=== PATIENT | female | born 1935 | race Caucasian/White ===

== ENCOUNTER → 2018-05-08 08:57 | Outpatient (CLI) | payer OTHER, SELFPAY ==
[2018-05-08 10:41] LABS: BUN Creatinine Ratio 22.7 (6-22); Blood Urea Nitrogen 25 mg/dL (7-17); Calcium 10.3 mg/dL (8.4-10.2); Carbon Dioxide 30 mmol/L (22-32); Chloride 99 mmol/L (98-107); Estimated Glomerular Filt Rate 47.6 mL/min (>60); Glucose 175 mg/dL (80-110); HEMOLYSIS < 15 (0-50); Potassium 4.4 mmol/L (3.4-5.1); Sodium 138 mmol/L (137-145)
== END ==
PROVIDERS: PCP Family Medicine; Visit Provider Internal Medicine Cardiovascular Disease
DX: I48.0 Paroxysmal atrial fibrillation (principal)
CPT/HCPCS: 36415; 80048

== ENCOUNTER 2018-05-28 11:38 | Emergency (ER) | payer OTHER, SELFPAY ==
[2018-05-28 11:43] VITALS: BP 163/77; PULSE 74; RESP 14; TEMP 36.4; O2SAT 96
--- NOTE | 2018-05-28 12:52 | ED.EXTPRO ---
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 She admits that she was on her feet a lot longer than usual doing cleaning. She states that the veins feel warm, her leg feels more tender. She denies any feeling of systemic illness, fever, chills, sweats. She denies any chest pain, dyspnea, abdominal pain or other new complaints on systems review. She is on warfarin for AFib and it has been about a month since she had her INR checked. She does also take supplements including potassium and magnesium. Related Data Home Medications Medication Instructions Recorded Confirmed chlorthalidone 25 mg tablet 12.5 mg PO DAILY tab 05/18/18 05/18/18 Previous Rx's Medication Instructions Recorded potassium chloride [Klor-Con M10] 10 meq PO QAM #100 tab 01/25/17 fluticasone 0.05 mg INH SEE INSTRUCTIONS #1 spr 01/27/17 atorvastatin [Lipitor] 10 mg PO HS #90 tab 12/30/17 diltiazem HCl 120 mg PO QDAY #90 cap 12/30/17 epinephrine [EpiPen 2-Ruel] 0.3 mg IM SEE INSTRUCTIONS PRN #1 01/11/18 kit metformin [Glucophage] 1,000 mg PO BIDCC #100 tab 01/25/18 magnesium oxide 400 mg PO BID #100 tab 02/03/18 losartan 50 mg tablet 50 mg PO BID #180 tab 03/01/18 pantoprazole 20 mg tablet,delayed 20 mg PO EVERY OTHER DAY #100 tab 03/24/18 release warfarin 5 mg tablet 5 mg PO QDAY #180 tab 05/04/18 metoprolol succinate ER 25 mg 50 mg PO BID #180 tab 05/17/18 tablet,extended release 24 hr diabetic supplies, miscellan. #100 strip 05/18/18 Allergies Allergy/AdvReac Type Severity Reaction Status Date / Time crab [CRAB] Allergy Unknown VISION Verified 05/28/18 11:46 CHANGES hornet venom [HORNET VENOM] Allergy Unknown Verified 05/28/18 11:46 YELLOW JACKET BEE Allergy Unknown Uncoded 05/18/18 13:38 Review of Systems <Kylie Griffith PA-C - Last Filed: 05/28/18 21:19> Review of Systems All systems reviewed & are unremarkable except as noted in HPI and below Exam <Kylie Griffith PA-C - Last Filed: 05/28/18 21:19> Narrative Exam Narrative: GENERAL APPEARANCE: Patient sitting comfortably, in no distress. NECK/THYROID: Neck supple, no JVD. LUNGS: Clear to auscultation bilaterally. HEART: Rate and rhythm irregular without murmur ABDOMEN: Soft, NT, ND, + BS x 4 quadrants NEUROLOGIC: Alert and oriented, normal speech, gait and coordination. EXTREMITIES: No cyanosis, trace edema on the right, none on the left. There are large, ropy, tender varicosities on the right medial calf and thigh as well as multiple smaller varicosities, none on the left. PT and DP pulses 2+ bilaterally. Moderate tenderness over the right medial calf and thigh Initial Vital Signs Initial Vital Signs: Vital Signs Temperature 97.6 F 05/28/18 11:43 Pulse Rate 74 05/28/18 11:43 Respiratory Rate 14 05/28/18 11:43 Blood Pressure 163/77 H 05/28/18 11:43 Pulse Oximetry 96 05/28/18 11:43 <Triston Gordon MD - Last Filed: 05/29/18 08:55> Initial Vital Signs Initial Vital Signs: Vital Signs Temperature 97.6 F 05/28/18 11:43 Pulse Rate 74 05/28/18 11:43 Respiratory Rate 14 05/28/18 11:43 Blood Pressure 163/77 H 05/28/18 11:43 Pulse Oximetry 96 05/28/18 11:43 Course <SINDY Womack Last Filed: 05/28/18 21:19> Orders Ordered: ED Orders 05/28/18 13:06 US periph venous low extrem rt Stat 05/28/18 13:15 Basic Metabolic Panel Stat Magnesium Stat Prothrombin Time INR Stat Vital Signs - 8 hr 05/28/18 14:42 Pulse Rate 77 Respiratory Rate 16 Blood Pressure 160/78 H Pulse Oximetry 99 <Triston Gordon MD - Last Filed: 05/29/18 08:55> Orders Ordered: ED Orders 05/28/18 13:06 US periph venous low extrem rt Stat 05/28/18 13:15 Basic Metabolic Panel Stat Magnesium Stat Prothrombin Time INR Stat Vital Signs - 8 hr 05/28/18 14:42 Pulse Rate 77 Respiratory Rate 16 Blood Pressure 160/78 H Pulse Oximetry 99 MDM - Extremity (Nontraumatic) <Kylie Griffith PA-C - Last Filed: 05/28/18 21:19> Lab Data Attestation: I reviewed the patient's lab results. Result diagrams: 05/28/18 13:15 Lab Results 05/28/18 05/28/18 Range/Units 13:15 13:15 PT 31.8 H (10.1-12.7) SECONDS INR 2.9 H (0.9-1.3) Sodium 136 L (137-145) mmol/L Potassium 4.5 (3.4-5.1) mmol/L Chloride 96 L (98-107) mmol/L Carbon Dioxide 28 (22-32) mmol/L BUN 30 H (7-17) mg/dL Creatinine 1.30 H (0.52-1.04) mg/dL Estimated GFR 39.2 L (>60) mL/min BUN/Creatinine Ratio 23.1 H (6-22) Glucose 137 H (80-110) mg/dL Calcium 10.4 H (8.4-10.2) mg/dL Magnesium 1.6 (1.6-2.3) mg/dL Imaging Data Venous US: Radiologist's impression: [place] [address] Ultrasound Report Signed Patient: Janneth Renner MR#: [id number] : 1935 Acct:[id number] Age/Sex: 83 / F Date of Service: 05/28/18 Loc: ED Accession Number: [id number] Procedure: US periph venous low extrem rt Ordering Provider: Kylie Griffith P.A-C PROCEDURE: US PERIPH VENOUS LOW EXTREM RT INDICATIONS: increased pain, varicosities, r/o DVT TECHNIQUE: Real-time imaging, as well as color and pulse Doppler interrogation, were performed of the lower extremity deep veins from the inguinal ligament to the popliteal fossa. COMPARISON: None. FINDINGS: The deep veins are normally compressible, and free of intraluminal thrombus. Color and pulse Doppler demonstrate normal phasic intraluminal flow. There is normal augmentation response to distal compression maneuver. IMPRESSION: No DVT found. Dictated by: Sixto Monzon M.D. on 05/28/2018 at 14:05 Approved by: Sixto Monzon M.D. on 05/28/2018 at 14:06 <Triston Gordon MD - Last Filed: 05/29/18 08:55> Lab Data Lab Results 05/28/18 05/28/18 Range/Units 13:15 13:15 PT 31.8 H (10.1-12.7) SECONDS INR 2.9 H (0.9-1.3) Sodium 136 L (137-145) mmol/L Potassium 4.5 (3.4-5.1) mmol/L Chloride 96 L (98-107) mmol/L Carbon Dioxide 28 (22-32) mmol/L BUN 30 H (7-17) mg/dL Creatinine 1.30 H (0.52-1.04) mg/dL Estimated GFR 39.2 L (>60) mL/min BUN/Creatinine Ratio 23.1 H (6-22) Glucose 137 H (80-110) mg/dL Calcium 10.4 H (8.4-10.2) mg/dL Magnesium 1.6 (1.6-2.3) mg/dL Discharge Plan Departure Patient Disposition: Home, Self-Care Clinical Impression: Varicose veins of right lower extremity, Phlebitis of superficial vein of right lower extremity Discharge Date/Time: 05/28/18 14:43 Interventions: ED Discharge Assessment Last Done: 05/28/18 14:42 Instructions: DI for Varicose Veins Activity Restrictions/Additional Instructions: I think that your leg pain today is from inflammation in the veins due to being on your feet for longer hours yesterday. There is no acute abnormality on your blood tests and no deep blood clot on her ultrasound today. The large varicose veins on your inner leg may be a little inflamed but this should improve with rest, elevating your leg above your heart, and you can also apply heat to the sore veins to help with pain. Take Tylenol as needed. Return if you have any acutely worsening symptoms, otherwise follow up with your PCP to recheck your INR as they advise since you were tested here today. Prescriptions: No Action potassium chloride [Klor-Con M10] 10 MEQ tablet,ER particles/crystals 10 meq PO QAM Qty: 100 RF: 5 fluticasone 16 GM spray,suspension 0.05 mg INH SEE INSTRUCTIONS Qty: 1 RF: 11 diltiazem HCl 120 MG capsule,extended release 24hr 120 mg PO QDAY Qty: 90 RF: 5 atorvastatin [Lipitor] 10 MG tablet 10 mg PO HS Qty: 90 RF: 3 epinephrine [EpiPen 2-Ruel] 0.3 MG/0.3 ML auto-injector 0.3 mg IM SEE INSTRUCTIONS PRNQty: 1 RF: 5 metformin [Glucophage] 500 MG tablet 1,000 mg PO BIDCC Qty: 100 RF: 5 magnesium oxide 400 MG tablet 400 mg PO BID Qty: 100 RF: 3 pantoprazole 20 mg tablet,delayed release (DR/EC) 20 mg PO EVERY OTHER DAY Qty: 100 RF: 3 warfarin [Coumadin] 5 mg tablet 5 mg PO QDAY Qty: 180 RF: 3 metoprolol succinate [Toprol XL] 25 mg tablet extended release 24 hr 50 mg PO BID Qty: 180 RF: 1 diabetic supplies, miscellan. misc .ROUTE .MEDSUPPLY Qty: 100 RF: 12 losartan 50 mg tablet 50 mg PO BID Qty: 180 RF: 0 chlorthalidone 25 mg tablet 12.5 mg PO DAILY RF: 0 Referrals: Pepe Chan MD [Primary Care Provider] - <Triston Gordon MD - Last Filed: 05/29/18 08:55> Sign Out Provider Sign Out Attestation: The PA/ORNAMENTAL METAL ERECTOR functioned independently for the care of this pt, I was available, but not asked to participate in care. I am unable to determine appropriateness of management without personally examining the pt.
--- NOTE | 2018-05-28 13:06 | DI.US.S_ITS ---
PROCEDURE: US PERIPH VENOUS LOW EXTREM RT INDICATIONS: increased pain, varicosities, r/o DVT TECHNIQUE: Real-time imaging, as well as color and pulse Doppler interrogation, were performed of the lower extremity deep veins from the inguinal ligament to the popliteal fossa. COMPARISON: None. FINDINGS: The deep veins are normally compressible, and free of intraluminal thrombus. Color and pulse Doppler demonstrate normal phasic intraluminal flow. There is normal augmentation response to distal compression maneuver. IMPRESSION: No DVT found. Dictated by: Sixto Monzon M.D. on 05/28/2018 at 14:05 Approved by: Sixto Monzon M.D. on 05/28/2018 at 14:06
[2018-05-28 13:30] LABS: INR 2.9 (0.9-1.3); Prothrombin Time 31.8 SECONDS (10.1-12.7)
[2018-05-28 13:34] LABS: BUN Creatinine Ratio 23.1 (6-22); Blood Urea Nitrogen 30 mg/dL (7-17); Calcium 10.4 mg/dL (8.4-10.2); Carbon Dioxide 28 mmol/L (22-32); Chloride 96 mmol/L (98-107); Estimated Glomerular Filt Rate 39.2 mL/min (>60); Glucose 137 mg/dL (80-110); HEMOLYSIS < 15 (0-50); Magnesium 1.6 mg/dL (1.6-2.3); Potassium 4.5 mmol/L (3.4-5.1); Sodium 136 mmol/L (137-145)
[2018-05-28 14:42] VITALS: BP 160/78; PULSE 77; RESP 16; O2SAT 99
== END 2018-05-28 14:43 | disposition home or self-care (01) ==
PROVIDERS: Emergency Provider Internal Medicine; PCP Family Medicine
DX: I83.91 Asymptomatic varicose veins of right lower extremity (principal); I80.01 Phlebitis and thrombophlebitis of superficial vessels of right lower extremity
CPT/HCPCS: 36415; 80048; 83735; 85610; 93971; 99282; 99283

== ENCOUNTER → 2018-05-31 13:02 | Outpatient (CLI) | payer OTHER, SELFPAY ==
--- NOTE | 2018-05-31 13:06 | DI.MG.S_ITS ---
BILATERAL DIGITAL DIAGNOSTIC MAMMOGRAM 3D/2D: 05/31/2018 CLINICAL: Left breast skin changes. Comparison is made to exams dated: 05/19/2016 mammogram, 07/05/2014 mammogram, and 04/17/2013 mammogram - [facility]. There are scattered fibroglandular elements in both breasts. No significant masses, calcifications, or other findings are seen in either breast. IMPRESSION: INCOMPLETE: NEEDS ADDITIONAL IMAGING EVALUATION There is no mammographic abnormality seen in the left breast to correspond with the skin lesion, however, ultrasound is recommended. This exam was interpreted at Station ID: [id number]. NOTE: For mammograms, a report in lay terms will be sent to the patient. Approximately 15% of breast malignancies will not be visualized mammographically. In the management of a palpable breast mass, a negative mammogram must not discourage biopsy of a clinically suspicious lesion. Electronically Signed By: Ailin hooker/tessie:05/31/2018 16:38:24 letter sent: Additional Imaging Needed ACR BI-RADS Category 0: Incomplete [id number]
--- NOTE | 2018-05-31 13:06 | DI.US.S_ITS ---
ULTRASOUND OF LEFT BREAST: 05/31/2018 CLINICAL: Follow up from addtional views. Comparison is made to exams dated: 05/31/2018 mammogram - [facility], 05/19/2016 mammogram, and 07/05/2014 mammogram - [facility]. Ultrasound of the left breast was performed on the area of interest. Manjarrez scale images of the real-time examination were reviewed. IMPRESSION: NEGATIVE There is no sonographic evidence of malignancy. There is no mammographic or sonographic abnormality seen in the left breast to correspond with the skin lesion, however, clinical followup is recommended. A 1 year screening mammogram is recommended. This exam was interpreted at Station ID: [id number]. Electronically Signed By: Ailin hooker/tessie:05/31/2018 16:39:05 letter sent: Clinical Evaluation Ultrasound BI-RADS: 1 Negative
== END ==
PROVIDERS: PCP Family Medicine; Visit Provider Internal Medicine
DX: R92.8 Other abnormal and inconclusive findings on diagnostic imaging of breast (principal); R23.4 Changes in skin texture
CPT/HCPCS: 76642; 77066; G0279

== ENCOUNTER → 2018-06-20 09:12 | Outpatient (CLI) | payer OTHER, SELFPAY ==
[2018-06-20 11:15] LABS: Hemoglobin A1C% w Est Avg Glu 7.5 % (4.0-6.0)
[2018-06-20 11:42] LABS: BUN Creatinine Ratio 28.2 (6-22); Blood Urea Nitrogen 31 mg/dL (7-17); Calcium 10.2 mg/dL (8.4-10.2); Carbon Dioxide 29 mmol/L (22-32); Chloride 101 mmol/L (98-107); Estimated Glomerular Filt Rate 47.6 mL/min (>60); Glucose 159 mg/dL (80-110); HEMOLYSIS < 15 (0-50); Potassium 4.7 mmol/L (3.4-5.1); Sodium 142 mmol/L (137-145)
== END ==
PROVIDERS: PCP Family Medicine; Visit Provider Family Medicine
DX: E11.9 Type 2 diabetes mellitus without complications (principal)
CPT/HCPCS: 36415; 80048; 83036

== ENCOUNTER → 2018-08-07 07:59 | Outpatient (CLI) | payer OTHER, SELFPAY ==
--- NOTE | 2018-08-07 09:09 | PM.TREADMILL ---
Cardiac Stress Test Report Referral & Results Date Patient Seen: 08/07/18 Time Patient Seen: 09:09 Requesting provider: Aleshia Desai Indication: Paroxysmal atrial fibrillation Rest ECG: Frequent PACs and less frequent to perhaps rare PVCs otherwise unremarkable Procedure Note: After both written and verbal informed consent the patient had an IV started by the diagnostic imaging RN and then was hooked up to the treadmill monitoring system. The patient was placed on the treadmill at 1 mile an hour with no elevation and was then injected with the Stormy scan material. The Cardiolite was then immediately administered. The patient spent an additional 2-3 minutes on the treadmill before being returned to the [facility] in the supine position. The patient had a normal response to all infused materials. Impression: Perfusion imaging will be reported separately. Please note: Actual ECG tracings can be found in the PACS system.
--- NOTE | 2018-08-08 15:08 | DI.NM.S_ITS ---
DATE OF SERVICE: 08/07/2018 ORDERING PHYSICIAN: Aleshia Desai MD PROCEDURE PERFORMED: Pharmacologic stress and rest myocardial perfusion imaging with gating to assess ejection fraction and regional wall motion. INDICATIONS: The patient is an 83-year-old female with a history of paroxysmal atrial fibrillation. PHARMACOLOGIC STRESS: Per protocol, 0.4 mg of regadenoson was infused with a normal hemodynamic response. She had no chest discomfort. Her resting ECG shows sinus rhythm with frequent PACs, at times in a bigeminal pattern, but no ST segment abnormalities. With stress, there were no significant ST segment shifts. There were no other additional arrhythmias. Per protocol, 27.0 mCi of technetium-99 Myoview was injected and the patient was imaged 15 minutes later using a gated SPECT acquisition protocol. The patient returned the following day and was reinjected with an additional 25.1 mCi of technetium-99 Myoview and was imaged 30 minutes later, again using a gated SPECT acquisition protocol. FINDINGS: 1. Raw data: There was fairly good myocardial tracer uptake. The lung/heart ratio was normal at 0.31 and the TID ratio was normal at 0.82. 2. Quantitated gated SPECT: The post-stress ejection fraction is estimated at 69% without any focal wall motion abnormality. Resting ejection fraction is estimated at 66% with a resting end-diastolic volume of 116 mL. 3. Myocardial perfusion imaging: Post-stress supine images show a fairly normal myocardial perfusion pattern with a very slight defect at the base of the inferior wall in a pattern consistent with diaphragmatic attenuation, supported by its complete resolution on the prone images which reveal a completely normal perfusion pattern. The resting images show an identical perfusion pattern to that of the post-stress supine images. CONCLUSIONS: 1. Normal myocardial perfusion study. 2. Probable mild diaphragmatic attenuation artifact but no evidence for significant myocardial ischemia or previous myocardial infarction. 3. Normal left ventricular systolic function without any focal wall motion abnormality. 4. No angina or ECG evidence of ischemia with pharmacologic stress. She was in sinus rhythm with frequent PACs but no other arrhythmia. 5. Compared to the previous myocardial perfusion study of 02/14/2017, an identical perfusion pattern is seen. Her previous ejection fraction was 74%, and perfusion imaging appears identical. There has been no significant change. Janneth Renner - RS/fn/kv doc#: [id number]/job#: [id number] dd: 08/08/2018 12:41:00 dt: 08/08/2018 15:01:00 DICTATING MD/COPIES TO: Darryl Rendon MD ; Aleshia Desai MD COPIES MNE: ODROTHY BORDEN
== END ==
PROVIDERS: PCP Family Medicine; Visit Provider Internal Medicine Cardiovascular Disease
DX: I48.0 Paroxysmal atrial fibrillation (principal)
CPT/HCPCS: 78452; 93016; 93017; 93018; A9502; J2785

== ENCOUNTER → 2018-08-17 09:43 | Outpatient (CLI) | payer OTHER, SELFPAY ==
[2018-08-17 11:45] LABS: Hemoglobin A1C% w Est Avg Glu 7.5 % (4.0-6.0)
[2018-08-17 11:48] LABS: Blood Urea Nitrogen 24 mg/dL (7-17); Calcium 9.8 mg/dL (8.4-10.2); Carbon Dioxide 29 mmol/L (22-32); Chloride 101 mmol/L (98-107); Estimated Glomerular Filt Rate 53.1 mL/min (>60); Glucose 173 mg/dL (80-110); HEMOLYSIS < 15 (0-50); Potassium 4.3 mmol/L (3.4-5.1); Sodium 142 mmol/L (137-145)
== END ==
PROVIDERS: PCP Family Medicine; Visit Provider Family Medicine
DX: R07.9 Chest pain, unspecified (principal)
CPT/HCPCS: 36415; 80048; 83036

== ENCOUNTER → 2019-07-31 11:07 | Outpatient (CLI) | payer OTHER, SELFPAY ==
--- NOTE | 2019-07-31 11:09 | DI.RAD.S_ITS ---
PROCEDURE: XR CHEST 2V INDICATIONS: coughing, chest tightness TECHNIQUE: 2 views of the chest were acquired. COMPARISON: [facility], CHEST 1 VIEW, 01/23/2017, 4:47. [facility], CHEST 1 VIEW, 12/29/2017, 13:09. FINDINGS: Surgical changes and devices: None. Lungs and pleura: Pulmonary vascularity is increased. Small effusions are present bilaterally. No pneumothorax. Mediastinum: Mediastinal contours are normal. Heart size is moderately increased. Bones and chest wall: No suspicious bony abnormalities. Soft tissues appear unremarkable. IMPRESSION: Moderate cardiomegaly and increased pulmonary vascularity and small bilateral effusions compatible with congestive heart failure. Dictated by: Mitch Lynch M.D. on 07/31/2019 at 13:53 Approved by: Mitch Lynch M.D. on 07/31/2019 at 13:55
== END ==
PROVIDERS: PCP Family Medicine; Visit Provider Family Medicine
DX: R05 Cough (principal); R07.89 Other chest pain; I51.7 Cardiomegaly; J90 Pleural effusion, not elsewhere classified
CPT/HCPCS: 71046

== ENCOUNTER → 2019-08-15 13:26 | Outpatient (CLI) | payer OTHER, SELFPAY ==
[2019-08-15 14:43] LABS: BUN Creatinine Ratio 21.4 (6-22); Blood Urea Nitrogen 30 mg/dL (7-17); Calcium 8.9 mg/dL (8.4-10.2); Carbon Dioxide 27 mmol/L (22-32); Chloride 95 mmol/L (98-107); Estimated Glomerular Filt Rate 35.9 mL/min (>60); Glucose 194 mg/dL (80-110); HEMOLYSIS < 15 (0-50); Potassium 3.4 mmol/L (3.4-5.1); Sodium 136 mmol/L (137-145)
== END ==
PROVIDERS: Family Provider Family Medicine; PCP Family Medicine; Visit Provider Nurse Practitioner
DX: I51.7 Cardiomegaly (principal); J90 Pleural effusion, not elsewhere classified; R60.0 Localized edema; T50.1X5A Adverse effect of loop [high-ceiling] diuretics, initial encounter
CPT/HCPCS: 36415; 80048

== ENCOUNTER → 2019-08-22 16:04 | Outpatient (CLI) | payer OTHER, SELFPAY ==
[2019-08-22 18:44] LABS: Blood Urea Nitrogen 28 mg/dL (7-17); Calcium 9.1 mg/dL (8.4-10.2); Carbon Dioxide 29 mmol/L (22-32); Chloride 95 mmol/L (98-107); Estimated Glomerular Filt Rate 35.9 mL/min (>60); Glucose 191 mg/dL (80-110); HEMOLYSIS < 15 (0-50); Magnesium 1.4 mg/dL (1.6-2.3); Potassium 3.2 mmol/L (3.4-5.1); Sodium 136 mmol/L (137-145)
== END ==
PROVIDERS: Family Provider Family Medicine; PCP Family Medicine; Visit Provider Nurse Practitioner
DX: I48.91 Unspecified atrial fibrillation (principal); R60.0 Localized edema
CPT/HCPCS: 36415; 80048; 83735

== ENCOUNTER → 2019-08-31 10:47 | Outpatient (CLI) | payer OTHER, SELFPAY ==
[2019-08-31 11:33] LABS: BUN Creatinine Ratio 26.4 (6-22); Blood Urea Nitrogen 37 mg/dL (7-17); Calcium 10.2 mg/dL (8.4-10.2); Carbon Dioxide 23 mmol/L (22-32); Chloride 100 mmol/L (98-107); Estimated Glomerular Filt Rate 35.9 mL/min (>60); Glucose 199 mg/dL (80-110); HEMOLYSIS < 15 (0-50); Magnesium 1.8 mg/dL (1.6-2.3); Potassium 4.5 mmol/L (3.4-5.1); Sodium 137 mmol/L (137-145)
== END ==
PROVIDERS: PCP Family Medicine; Visit Provider Nurse Practitioner
DX: R00.0 Tachycardia, unspecified (principal); R07.9 Chest pain, unspecified; R79.0 Abnormal level of blood mineral
CPT/HCPCS: 36415; 80048; 83735

== ENCOUNTER 2019-09-22 02:42 | Inpatient (IN) | payer OTHER, SELFPAY ==
[2019-09-22] VITALS (15 sets, daily range): BP systolic 61–156; BP diastolic 32–113; PULSE 81–146; RESP 15–35; TEMP 35.5–36.8; O2SAT 75–98; BMI 28.1
--- NOTE | 2019-09-22 02:48 | DI.RAD.S_ITS ---
PROCEDURE: XR PELVIS 1-2V INDICATIONS: fall, trauma TECHNIQUE: 1 view(s) of the pelvis acquired. COMPARISON: [facility], CT, ABDOMEN/PELVIS WITH CONTRAST, 04/29/2014, 10:14. FINDINGS: Study is limited by grid lines. Bones: No fractures or dislocations. No suspicious bony lesions. There is moderate superior joint space narrowing seen of both hips, with associated remodeling changes with subchondral sclerosis and osteophyte formation. Age-appropriate lower lumbar spine degenerative changes are noted. Soft tissues: Visualized bowel gas pattern is normal. No suspicious soft tissue calcifications. IMPRESSION: No displaced fractures are detected. If there is point tenderness (or other clinical suspicion for a fracture not seen on these images) then a dedicated CT of the pelvis could be considered for further evaluation, as clinically appropriate. Degenerative changes are seen. Dictated by: Garland Neville M.D. on 09/22/2019 at 9:02 Approved by: Garland Neville M.D. on 09/22/2019 at 9:04
--- NOTE | 2019-09-22 02:48 | DI.CT.S_ITS ---
PROCEDURE: CT HEAD/BRAIN WO CON INDICATIONS: altered mental status, possible fall vs. stroke, found down TECHNIQUE: Noncontrast 4.5 mm thick angled axial sections acquired from the foramen magnum to the vertex, with coronal and sagittal reformats. For radiation dose reduction, the following was used: automated exposure control, adjustment of mA and/or kV according to patient size. COMPARISON: [facility], CT, SINUS SCREEN WO CONTRAST, 06/13/2017, 10:11. [facility], CR, XR CHEST 1V, 09/22/2019, 2:55. [facility], CR, XR PELVIS 1-2V, 09/22/2019, 2:55. [facility], CR, XR CHEST 1V, 09/22/2019, 9:57. FINDINGS: Image quality: Excellent. CSF spaces: Basal cisterns are patent. No extra-axial fluid collections. The ventricles are symmetric in size and shape. Brain: No intracranial bleeds or masses. There is cerebral volume loss for age, with resultant ventricular and sulcal prominence. There are periventricular and deep white matter chronic small vessel ischemic changes. There is intracranial internal carotid artery atherosclerosis. Skull and face: There is a mild left parietal scalp hematoma seen. No underlying calvarial fracture can be seen. Calvarium and visualized facial bones appear intact, without suspicious lesions. Sinuses: Maxillary sinus mucus retention cysts are seen. Moderate mucosal thickening seen within the ethmoid air cells and within the inferior left frontal sinus. No abnormal fluid is seen within the mastoid air cells. IMPRESSION: Mild left parietal scalp hematoma, without an associated calvarial fracture. No acute intracranial process is seen. No acute intracranial hemorrhage is seen. Note is made of age-appropriate brain parenchymal volume loss and chronic small vessel ischemic changes. Paranasal sinus disease noted. Note: No significant discrepancy from the preliminary report. Dictated by: Garland Neville M.D. on 09/22/2019 at 9:07 Approved by: Garland Neville M.D. on 09/22/2019 at 9:09
--- NOTE | 2019-09-22 02:48 | DI.RAD.S_ITS ---
PROCEDURE: XR CHEST 1V INDICATIONS: fall, trauma TECHNIQUE: One view of the chest was acquired. COMPARISON: [facility], CT, THORAX WITHOUT CONTRAST, 07/23/2016, 10:56. [facility], CT, PE STUDY (CTA CHEST), 08/03/2015, 15:38. [facility], CR, CHEST 1 VIEW, 12/29/2017, 13:09. [facility], CT, CT HEAD/BRAIN WO CON, 09/22/2019, 3:04. [facility], CR, XR PELVIS 1-2V, 09/22/2019, 2:55. [facility], CR, XR CHEST 2V, 07/31/2019, 12:13. FINDINGS: Surgical changes and devices: None. Lungs and pleura: On this supine examination, no large pneumothorax or large pleural effusions are seen. No focal areas of lung consolidation are seen. Interstitial prominence is seen. Mediastinum: The cardiac contours are moderately to prominently enlarged. The aorta demonstrates calcification and tortuosity. Bones and chest wall: No suspicious bony lesions. No displaced fractures are detected. Age-appropriate bony degenerative changes are seen. Overlying soft tissues appear unremarkable. IMPRESSION: No acute posttraumatic abnormality is seen. Cardiomegaly and interstitial prominence. Please correlate with patient presentation, physical examination findings, and laboratory values for congestive heart failure. Dictated by: Garland Neville M.D. on 09/22/2019 at 9:04 Approved by: Garland Neville M.D. on 09/22/2019 at 9:06
--- NOTE | 2019-09-22 02:54 | ED.WEAKNESS ---
HPI - Weakness General Chief complaint: Trauma Stated complaint: Ground level fall Time Seen by Provider: 09/22/19 02:42 Source: patient and EMS Mode of arrival: EMS Limitations: no limitations History of Present Illness HPI Narrative: 84-year-old female nonsmoker with medical history of hypertension and atrial fibrillation on Coumadin presents by EMS after police were called to do a welfare check as no one had heard from her for the past few days. Please prompt on the door and found her lying on the ground in her bathroom, apparently she had fallen, or passed out and pulled the shower curtain down. The patient is awake, alert and oriented x3 and denies any pain. She is unclear how long she has been on the ground and how she ended up there in the 1st place. She denies any head, neck or back pain. She denies any nausea or vomiting. She does state that she feels very weak, thirsty and short of breath. She denies any change in bowel habits nor urinary complaints such as dysuria, frequency or urgency. She denies any change in her medications or diet. MD Complaint: generalized weakness Onset (ago): unknown Duration: constant Location: generalized Severity: severe Relieving factors: none Exacerbating factors: none Associated symptoms: loss of appetite and shortness of breath Related Data Home Medications Medication Instructions Recorded Confirmed potassium chloride 10 mEq 20 meq PO QAM tab 08/22/19 09/22/19 tablet,extended release(part/cryst) chlorthalidone 12.5 mg PO DAILY 09/22/19 09/22/19 diltiazem HCl [Cartia XT] 120 mg PO DAILY 09/22/19 09/22/19 Previous Rx's Medication Instructions Recorded epinephrine [EpiPen 2-Ruel] 0.3 mg IM SEE INSTRUCTIONS PRN #1 01/11/18 kit diabetic supplies, miscellan. #100 strip 05/18/18 metformin 500 mg tablet 1,000 mg PO BIDCC #100 tab 12/04/18 atorvastatin [Lipitor] 10 mg PO HS #90 tab 12/25/18 losartan 50 mg tablet 50 mg PO BID #180 tab 12/25/18 diltiazem HCl 120 mg PO QDAY #90 cap 03/15/19 magnesium oxide 400 mg PO BID #100 tab 03/26/19 warfarin 5 mg tablet 5 mg PO QDAY #180 tab 04/13/19 amlodipine 2.5 mg tablet 2.5 mg PO DAILY #30 tab 06/04/19 pantoprazole 20 mg tablet,delayed 20 mg PO EVERY OTHER DAY #100 tab 06/12/19 release metoprolol succinate 25 mg 75 mg PO BID #90 tab 08/22/19 tablet,extended release 24 hr triamcinolone acetonide 0.05 % 1 applictn TOP TID PRN #430 gram 08/22/19 topical ointment Allergies Allergy/AdvReac Type Severity Reaction Status Date / Time crab [CRAB] Allergy Unknown VISION Verified 08/22/19 14:37 CHANGES hornet venom [HORNET VENOM] Allergy Unknown Verified 08/22/19 14:37 YELLOW JACKET BEE Allergy Unknown Uncoded 08/22/19 14:37 Review of Systems Review of Systems ROS Unobtainable: All systems reviewed & are unremarkable except as noted in HPI and below Constitutional Constitutional: Denies chills, Reports fatigue, Denies fever(s), Denies frequent falls, Denies lethargy and Reports weakness Eyes Eyes: Denies change in vision, Denies eye discharge, Denies irritation and Denies loss of vision ENT Ears, Nose, Mouth, and Throat: Denies change in voice, Denies dizziness, Denies neck pain, Denies sore throat and Denies throat swelling Comments: Dry mucous membranes Cardiovascular Cardiovascular: Reports rapid heart rate, Reports irregular heart rhythm, Reports lightheadedness, Reports palpitations, Reports dyspnea, Denies dyspnea on exertion and Denies orthopnea Respiratory Respiratory: Denies cough, Reports dyspnea, Denies dyspnea on exertion and Denies wheezing Gastrointestinal Gastrointestinal: Denies abdominal pain, Denies change in bowel habits, Denies diarrhea, Denies nausea and Denies vomiting Genitourinary Genitourinary: Denies hematuria, Denies flank pain, Denies urinary incontinence and Denies urinary urgency Musculoskeletal Musculoskeletal: Denies back pain, Reports muscle weakness, Denies neck pain, Denies numbness and Denies tingling Integumentary/Breasts Skin/Breast: Denies pruritus, Denies erythema, Denies rash, Reports unusual bruising and Denies wounds Neurologic Neurologic: Denies behavioral changes, Denies confusion, Denies dizziness, Denies frequent falls, Denies loss of vision, Denies numbness, Denies tingling and Reports weakness Psychiatric Psychiatric: Denies anxiety, Denies behavioral changes, Denies confusion, Denies depression, Denies homicidal ideation and Denies suicidal ideation Endocrine Endocrine: Reports fatigue, Denies flushing and Reports palpitations Hematologic/Lymphatic Hematologic/Lymphatic: Denies easy bruising Allergic/Immunologic Allergic/Immunologic: Denies urticaria, Denies throat swelling and Denies wheezing Patient History Surgical History (Updated 02/28/18 @ 16:17 by Marlene Faulkner) Anesthesia (Resolved) Cataracts, bilateral (Resolved ~2013) H/O varicose vein ligation (Resolved ~09/1961) Surgical procedure planned (Resolved ~07/2013) Family History (Updated 05/20/14 @ 00:00 by Clementine Hopson) Father Cancer Brother No problems noted. Mother No problems noted. Social History marital status: pets and animals: Yes education level: high school [employer]ara/[employer]ple: [employer] travel history: other leisure activities: reading and other other: Crossword puzzles, walking seatbelt use: always helmet use: No water heater temp set < 120 deg: Yes working smoke detector in home: Yes fire extinguisher in home: Yes carbon monox detector in home: Yes firearms in home: No Smoking Status: Never smoker alcohol intake: never substance use type: does not use during the past year weight has: remained stable well-balanced diet: about half the time daily servings fruits/ve-4 caffeine: Yes eating out: 1-3 times/week Type(s) of exercise: walking frequency: 5-6 times per week duration: 45-60 minutes/day alcohol intake frequency: 0-2 drinks per day Substance Use Type: does not use Exam Narrative Exam Narrative: GENERAL: [84] year old patient appears stated age. Obviously ill, significantly weak and very dehydrated. HEAD: Atraumatic. Normocephalic. EYES: Pupils equal round and reactive. Extraocular motions intact. No scleral icterus. No injection or drainage. ENT: Dry cracking lips and dry mucous membranes Nose without bleeding, purulent drainage. Throat without erythema, tonsillar hypertrophy or exudate. Airway patent. NECK: Trachea midline. Non tender, no bruising, lacerations or abrasions, no bony point tenderness or step-offs CARDIOVASCULAR: Tachycardic and irregular rhythm without murmurs, gallops, or rubs. RESPIRATORY: Decreased breath sounds bilaterally with faint crackles in bilateral bases GASTROINTESTINAL: Abdomen soft, non-tender, nondistended. EXTREMITIES: 1+ pitting edema and right lower extremity, no edema left lower extremity BACK: Nontender without deformity or crepitance. No flank tenderness. NEURO: AOx3. SKIN: Very dry, poor turgor. Erythematous bruising and petechiae under left breast and on right hip and left ankle Initial Vital Signs Initial Vital Signs: Vital Signs Temperature 97 F L 09/22/19 02:55 Pulse Rate 146 H 09/22/19 02:55 Respiratory Rate 35 H 09/22/19 02:55 Blood Pressure 129/113 H 09/22/19 02:55 Pulse Oximetry 98 09/22/19 02:55 Course Orders Ordered: ED Orders 09/22/19 02:47 Influenza A & B (PCR) Stat 09/22/19 02:48 CT head/brain wo con Stat XR chest 1V Stat XR pelvis 1-2V Stat 09/22/19 02:54 EKG-12 Lead Stat 09/22/19 03:00 B Type Natriuretic Peptide Stat Complete Blood Count AUTO DIFF Stat Comprehensive Metabolic Panel Stat Magnesium Stat Partial Thromboplastin Time Stat Procalcitonin Stat Prothrombin Time INR Stat Troponin & CK Cardiac Panel Stat 09/22/19 03:07 Blood Culture Stat Lactate (Lactic Acid) Stat 09/22/19 03:55 Ictotest Urine Stat Urinalysis and Microscopic Stat Acetaminophen (Tylenol) 650 mg PO Q6HR PRN PRN Reason: As Needed for Fever/Mild Pain Bisacodyl (Dulcolax) 10 mg [place] DAILY PRN PRN Reason: Constipation Amiodarone HCl/Dextrose (Nexterone) 360 mg in 200 mls @ 33.333 mls/hr IV NOW ONE; Protocol Stop: 09/22/19 10:48 Last Titration: 09/22/19 05:59 Dose: 33.33 mls/hr Documented by: Admin: 09/22/19 05:26 Dose: 33.333 mls /hr, 33.33 mls/hr Documented by: BISI Lactated Ringer's (Lactated Ringers) 1,000 mls @ 250 mls/hr IV CONT SUDARSHAN Magnesium Hydroxide (Milk Of Magnesia) 30 ml PO BID SUDARSHAN Metoclopramide HCl (Reglan) 10 mg IV Q6HR PRN PRN Reason: Nausea And Vomiting Naloxone HCl (Narcan) 0.2 mg IV Q2MIN PRN PRN Reason: Opiate Reversal Pantoprazole Sodium (Protonix) 40 mg IV DAILY SUDARSHAN Discontinued Medications Digoxin (Lanoxin) 250 mcg IV NOW ONE Stop: 09/22/19 03:14 Last Admin: 09/22/19 03:40 Dose: 250 mcg Documented by: BISI Diltiazem HCl (Cardizem) 10 mg IV NOW ONE Stop: 09/22/19 02:50 Last Admin: 09/22/19 03:08 Dose: 5 mg Documented by: BISI Sodium Chloride (Normal Saline 0.9%) 1,000 mls @ 1,000 mls/hr IV BOLUS ONE Stop: 09/22/19 03:45 Last Infusion: 09/22/19 05:13 Dose: 0 mls/hr Documented by: Admin: 09/22/19 03:46 Dose: 1,000 mls/hr Documented by: BISI Ceftriaxone Sodium/Dextrose (Rocephin) 1 gm in 50 mls @ 100 mls/hr IV NOW ONE Stop: 09/22/19 04:12 Last Infusion: 09/22/19 04:22 Dose: 0 mls/hr Documented by: Admin: 09/22/19 03:51 Dose: 100 mls/hr Documented by: BISI Sodium Chloride (Normal Saline 0.9%) 1,000 mls @ 1,000 mls/hr IV BOLUS ONE Stop: 09/22/19 04:42 Last Admin: 09/22/19 04:21 Dose: Not Given Documented by: BISI Amiodarone HCl/Dextrose (Nexterone) 150 mg in 100 mls @ 600 mls/hr IV NOW ONE; Protocol Stop: 09/22/19 04:56 Last Infusion: 09/22/19 05:20 Dose: 0 mls/hr Documented by: Admin: 09/22/19 05:10 Dose: 600 mls/hr Documented by: BISI Vital Signs Vital signs: Vital Signs - 8 hr 09/22/19 02:55 09/22/19 03:08 09/22/19 03:40 Temperature 97 F L Pulse Rate 146 H 144 H 145 H Respiratory Rate 35 H Blood Pressure 129/113 H 112/86 95/66 Blood Pressure [Right Arm] Pulse Oximetry 98 09/22/19 04:43 09/22/19 05:10 09/22/19 05:27 Temperature 96.6 F L Pulse Rate 134 H 132 H Respiratory Rate 21 24 Blood Pressure Blood Pressure [Right Arm] 90/76 114/98 H Pulse Oximetry 93 96 MDM - Weakness Lab Data Result diagrams: 09/22/19 03:00 09/22/19 03:00 Labs: Lab Results 09/22/19 09/22/19 09/22/19 Range/Units 03:00 03:00 03:00 WBC 12.2 H (4.5-11.0) X10^3/uL RBC 4.71 (4.0-5.2) X10^6/uL Hgb 10.1 L (12.0-16.0) g/dL Hct 33.3 L (36-46) % MCV 70.7 L (80-100) fL MCH 21.5 L (26-34) PG MCHC 30.4 (30-36) % RDW 19.4 H (11.6-14.8) % Plt Count 169 (150-400) X10^3/uL Neut % (Auto) Not Reportable Lymph % (Auto) Not Reportable [place] % (Auto) Not Reportable Eos % (Auto) Not Reportable Baso % (Auto) Not Reportable Lymph # (Auto) Not Reportable [place] # (Auto) Not Reportable Baso # (Auto) Not Reportable Total Counted 100 Seg Neutrophils % 87.0 H (38-70) % Lymphocytes % (Manual) 6.0 L (25-45) % Monocytes % (Manual) 7.0 (2-11) % Neutrophils # (Manual) 48358 H (1874-7115) /uL RBC Morphology See below Polychromasia 1+ H Hypochromasia 2+ H Anisocytosis 2+ H Target Cells 1+ H [place] Cells 3+ H Acanthocytes (Spur) 2+ H PT 30.0 H (10.1-12.7) SECONDS INR 2.6 H (0.9-1.3) APTT 36 (26.4-36.2) SECONDS Sodium 141 (137-145) mmol/L Potassium 5.2 H (3.4-5.1) mmol/L Chloride 112 H (98-107) mmol/L Carbon Dioxide 12 L (22-32) mmol/L BUN 64 H (7-17) mg/dL Creatinine 2.50 H (0.52-1.04) mg/dL Estimated GFR 18.4 L (>60) mL/min BUN/Creatinine Ratio 25.6 H (6-22) Glucose 113 H (80-110) mg/dL Lactate (0.7-2.1) mmol/L Calcium 9.7 (8.4-10.2) mg/dL Magnesium 2.3 (1.6-2.3) mg/dL Total Bilirubin 4.5 H (0.2-1.3) mg/dL AST 160 H (14-36) IU/L ALT 78 H (<35) IU/L Alkaline Phosphatase 104 (38-126) U/L Total Creatine Kinase 975 H (30-135) U/L CK-MB (CK-2) 22.20 H (<2.37) ng/mL CK-MB (CK-2) Rel Index 2.3 (1.5-5.0) % Troponin I 0.103 H (0.01-0.034) ng/mL B-Natriuretic Peptide 756 H (<100) Total Protein 5.4 L (6.3-8.2) g/dL Albumin 3.1 L (3.5-5.0) g/dL Globulin 2.3 (1.7-4.1) g/dL Albumin/Globulin Ratio 1.3 (1.0-2.8) Procalcitonin (<0.5) ng/mL Urine Color Urine Appearance Urine pH (4.5-8.0) Ur Specific [place] (1.000-1.035) Urine Protein (Negative) Urine Glucose (UA) (Negative) g/dL Urine Ketones (NEGATIVE) Urine Occult Blood (Negative) Urine Nitrate (Negative) Urine Bilirubin (NEGATIVE) Urine Ictotest (Negative) Urine Urobilinogen (0.2) E.U./dL Ur Leukocyte Esterase (NEGATIVE) Urine RBC (0-5/HPF) Urine WBC (0-5/HPF) Ur Squamous Epith Cells (0-5/HPF) Calcium Oxalate Crystal Uric Acid Crystals Amorphous Sediment Urine Bacteria (None) Hyaline Casts (None) Ur Culture Indicated? 09/22/19 09/22/19 09/22/19 Range/Units 03:00 03:07 03:55 WBC (4.5-11.0) X10^3/uL RBC (4.0-5.2) X10^6/uL Hgb (12.0-16.0) g/dL Hct (36-46) % MCV (80-100) fL MCH (26-34) PG MCHC (30-36) % RDW (11.6-14.8) % Plt Count (150-400) X10^3/uL Neut % (Auto) Lymph % (Auto) [place] % (Auto) Eos % (Auto) Baso % (Auto) Lymph # (Auto) [place] # (Auto) Baso # (Auto) Total Counted Seg Neutrophils % (38-70) % Lymphocytes % (Manual) (25-45) % Monocytes % (Manual) (2-11) % Neutrophils # (Manual) (6582-2370) /uL RBC Morphology Polychromasia Hypochromasia Anisocytosis Target Cells [place] Cells Acanthocytes (Spur) PT (10.1-12.7) SECONDS INR (0.9-1.3) APTT (26.4-36.2) SECONDS Sodium (137-145) mmol/L Potassium (3.4-5.1) mmol/L Chloride (98-107) mmol/L Carbon Dioxide (22-32) mmol/L BUN (7-17) mg/dL Creatinine (0.52-1.04) mg/dL Estimated GFR (>60) mL/min BUN/Creatinine Ratio (6-22) Glucose (80-110) mg/dL Lactate 6.8 H* (0.7-2.1) mmol/L Calcium (8.4-10.2) mg/dL Magnesium (1.6-2.3) mg/dL Total Bilirubin (0.2-1.3) mg/dL AST (14-36) IU/L ALT (<35) IU/L Alkaline Phosphatase (38-126) U/L Total Creatine Kinase (30-135) U/L CK-MB (CK-2) (<2.37) ng/mL CK-MB (CK-2) Rel Index (1.5-5.0) % Troponin I (0.01-0.034) ng/mL B-Natriuretic Peptide (<100) Total Protein (6.3-8.2) g/dL Albumin (3.5-5.0) g/dL Globulin (1.7-4.1) g/dL Albumin/Globulin Ratio (1.0-2.8) Procalcitonin 0.29 (<0.5) ng/mL Urine Color Dark yellow Urine Appearance Clear Urine pH 5.0 (4.5-8.0) Ur Specific [place] 1.025 (1.000-1.035) Urine Protein 2+ H (Negative) Urine Glucose (UA) Negative (Negative) g/dL Urine Ketones Trace H (NEGATIVE) Urine Occult Blood 1+ H (Negative) Urine Nitrate Negative (Negative) Urine Bilirubin 1+ H (NEGATIVE) Urine Ictotest Positive H (Negative) Urine Urobilinogen 0.2 (0.2) E.U./dL Ur Leukocyte Esterase Negative (NEGATIVE) Urine RBC 1-5/hpf (0-5/HPF) Urine WBC None seen (0-5/HPF) Ur Squamous Epith Cells 0-1 /hpf (0-5/HPF) Calcium Oxalate Crystal Occasional H Uric Acid Crystals Occasional Amorphous Sediment 1+ Urine Bacteria Few (2-10) H (None) Hyaline Casts 1-5/lpf (None) Ur Culture Indicated? Cult not indicated 09/22/19 Range/Units 05:20 WBC (4.5-11.0) X10^3/uL RBC (4.0-5.2) X10^6/uL Hgb (12.0-16.0) g/dL Hct (36-46) % MCV (80-100) fL MCH (26-34) PG MCHC (30-36) % RDW (11.6-14.8) % Plt Count (150-400) X10^3/uL Neut % (Auto) Lymph % (Auto) [place] % (Auto) Eos % (Auto) Baso % (Auto) Lymph # (Auto) [place] # (Auto) Baso # (Auto) Total Counted Seg Neutrophils % (38-70) % Lymphocytes % (Manual) (25-45) % Monocytes % (Manual) (2-11) % Neutrophils # (Manual) (5136-9481) /uL RBC Morphology Polychromasia Hypochromasia Anisocytosis Target Cells [place] Cells Acanthocytes (Spur) PT (10.1-12.7) SECONDS INR (0.9-1.3) APTT (26.4-36.2) SECONDS Sodium (137-145) mmol/L Potassium (3.4-5.1) mmol/L Chloride (98-107) mmol/L Carbon Dioxide (22-32) mmol/L BUN (7-17) mg/dL Creatinine (0.52-1.04) mg/dL Estimated GFR (>60) mL/min BUN/Creatinine Ratio (6-22) Glucose (80-110) mg/dL Lactate 7.0 H* (0.7-2.1) mmol/L Calcium (8.4-10.2) mg/dL Magnesium (1.6-2.3) mg/dL Total Bilirubin (0.2-1.3) mg/dL AST (14-36) IU/L ALT (<35) IU/L Alkaline Phosphatase (38-126) U/L Total Creatine Kinase (30-135) U/L CK-MB (CK-2) (<2.37) ng/mL CK-MB (CK-2) Rel Index (1.5-5.0) % Troponin I (0.01-0.034) ng/mL B-Natriuretic Peptide (<100) Total Protein (6.3-8.2) g/dL Albumin (3.5-5.0) g/dL Globulin (1.7-4.1) g/dL Albumin/Globulin Ratio (1.0-2.8) Procalcitonin (<0.5) ng/mL Urine Color Urine Appearance Urine pH (4.5-8.0) Ur Specific [place] (1.000-1.035) Urine Protein (Negative) Urine Glucose (UA) (Negative) g/dL Urine Ketones (NEGATIVE) Urine Occult Blood (Negative) Urine Nitrate (Negative) Urine Bilirubin (NEGATIVE) Urine Ictotest (Negative) Urine Urobilinogen (0.2) E.U./dL Ur Leukocyte Esterase (NEGATIVE) Urine RBC (0-5/HPF) Urine WBC (0-5/HPF) Ur Squamous Epith Cells (0-5/HPF) Calcium Oxalate Crystal Uric Acid Crystals Amorphous Sediment Urine Bacteria (None) Hyaline Casts (None) Ur Culture Indicated? ECG Data Attestation: I personally reviewed and interpreted this ECG as follows: Prior ECG tracings: available for review Interpretation: Rapid AFib at 1:50 a.m. with no signs of ischemia such as ST segmental elevation or depression. No other ectopy. QRS 116, QTC 314 l Critical Care Time Critical Care Time Critical Care Time: Yes Total Critical Care Time: 35 Attestation: The high probability of a clinically significant, sudden or life threatening deterioration of the [CV] system(s) required my full and direct attention, intervention and personal management. The aggregate critical care time was [35] minutes. This time is in addition to time spent performing reported procedures but includes the following: [x] Data Review and interpretation [x] Patient assessment and monitoring of vital signs [x] Documentation [x] Medication orders and management Discharge Plan Departure Patient Disposition: Admitted As Inpatient Clinical Impression: Atrial fibrillation with rapid ventricular response, Acute dehydration, Weakness Discharge Date/Time: 09/22/19 05:55 Admit Date/Time: 09/22/19 06:01 Admit Provider: Jossie Sewell
[2019-09-22] MEDS: dilTIAZem 5 MG/ML SDV 10 MG IV (03:08)
[2019-09-22 03:13] LABS: Hematocrit 33.3 % (36-46); Hemoglobin 10.1 g/dL (12.0-16.0); INR 2.6 (0.9-1.3); Mean Corpuscular HGB Conc 30.4 % (30-36); Mean Corpuscular Hemoglobin 21.5 PG (26-34); Mean Corpuscular Volume 70.7 fL (80-100); Platelet Count 169 X10^3/uL (150-400); Red Blood Cell Count 4.71 X10^6/uL (4.0-5.2); Red Cell Distribution Width 19.4 % (11.6-14.8); White Blood Cell Count 12.2 X10^3/uL (4.5-11.0)
[2019-09-22 03:15] LABS: Add Manual Diff / Slide Review YES
[2019-09-22 03:16] LABS: PTT Partial Thromboplastin Tim 36 SECONDS (26.4-36.2)
[2019-09-22 03:17] LABS: Albumin 3.1 g/dL (3.5-5.0); Albumin Globulin Ratio 1.3 (1.0-2.8); Alkaline Phosphatase 104 U/L (38-126); Aspartate Aminotransferase 160 IU/L (14-36); BUN Creatinine Ratio 25.6 (6-22); Bilirubin Total 4.5 mg/dL (0.2-1.3); Blood Urea Nitrogen 64 mg/dL (7-17); Calcium 9.7 mg/dL (8.4-10.2); Carbon Dioxide 12 mmol/L (22-32); Chloride 112 mmol/L (98-107); Creatine Kinase 975 U/L (30-135); Estimated Glomerular Filt Rate 18.4 mL/min (>60); Globulin 2.3 g/dL (1.7-4.1); Glucose 113 mg/dL (80-110); HEMOLYSIS < 15 (0-50); Magnesium 2.3 mg/dL (1.6-2.3); Potassium 5.2 mmol/L (3.4-5.1); Sodium 141 mmol/L (137-145); Total Protein 5.4 g/dL (6.3-8.2)
[2019-09-22 03:25] LABS: Alanine Aminotransferase 78 IU/L (<35)
[2019-09-22 03:29] LABS: Troponin I 0.103 ng/mL (0.01-0.034)
[2019-09-22 03:32] LABS: B Type Natriuretic Peptide 756 (<100)
[2019-09-22 03:33] LABS: CKMB % Relative Index 2.3 % (1.5-5.0); Procalcitonin 0.29 ng/mL (<0.5)
--- NOTE | 2019-09-22 03:36 | PC.NURSE ---
BP reduced to 91/59 before cardezem push. Provider notified and changed order to 5mg. Patient HR did not reduce after cardizem.
[2019-09-22 03:37] LABS: Lactate (Lactic Acid) 6.8 mmol/L (0.7-2.1)
--- NOTE | 2019-09-22 03:39 | PC.NURSE ---
past cardezem push BP 91/69 HR 152
[2019-09-22] MEDS: DIGOXIN 500 MCG/2 ML AMPUL 250 MCG IV (03:40)
[2019-09-22 03:45] LABS: Neutrophils Absolute Manual 10614 /uL (3000-5900); Total Cells Counted 100
[2019-09-22 03:46] LABS: Anisocytosis 2+
[2019-09-22] MEDS: SODIUM CHLORIDE 0.9% 1,000 ML 1000 ML IV (03:46)
[2019-09-22 03:47] LABS: Acanthocytes 2+; Hypochromasia 2+
[2019-09-22 03:48] LABS: Polychromasia 1+; Target Cells 1+
[2019-09-22 03:50] LABS: Burr Cells 3+
[2019-09-22] MEDS: CEFTRIAXONE 1 GM/50 ML FROZ.PIGGY IV (03:51)
--- NOTE | 2019-09-22 03:52 | PC.NURSE ---
temp sensing nolasco placed. Patient tolerated procedure well, was able to maintain position for insterion of nolasco. Nolasco immediatley returned dark urine. Patients underware has small amout of dried urine soiled in it.
--- NOTE | 2019-09-22 03:54 | PC.NURSE ---
Patient temprature with nolasco is 95.6.
--- NOTE | 2019-09-22 03:54 | PC.NURSE ---
2 liters infused from EMS, third liter started in ED.
[2019-09-22 04:11] LABS: Appearance Urine UA CLEAR; Bilirubin Urine UA 1+ (NEGATIVE); Glucose Urine UA NEGATIVE (Negative); Ketones Urine UA TRACE (NEGATIVE); Leukocyte Esterase Urine UA NEGATIVE (NEGATIVE); Nitrite Urine UA NEGATIVE (Negative); Occult Blood Urine UA 1+ (Negative); Protein Urine UA 2+ (Negative); Specific Gravity Urine UA 1.025 (1.000-1.035); Urobilinogen Urine UA 0.2 E.U./dL (0.2)
--- NOTE | 2019-09-22 04:17 | PC.NURSE ---
patient found down in bathroom, unknown down time. ems placed 2 IV's and started 2Lns prior to arrival at ed. Patient states she was only on the floor for a few hours.
[2019-09-22 04:18] LABS: Color Urine UA Dark Yellow
[2019-09-22 04:19] LABS: Amorphous Sediment Urine 1+; Bacteria Urine Few (2-10); Ictotest Urine Positive (Negative); RBC Urine 1-5/HPF (0-5/HPF); Squamous Epithelial Cell Urine 0-1 /HPF (0-5/HPF)
[2019-09-22 04:20] LABS: Hyaline Casts Urine 1-5/LPF
[2019-09-22 04:21] LABS: Calcium Oxalate Crystals Urine Occasional; Uric Acid Crystals Urine Occasional
[2019-09-22 04:22] LABS: Culture Indicated Urine Cult Not Indicated; WBC Urine None Seen (0-5/HPF)
[2019-09-22] MEDS: AMIODARONE 150 MG/100 ML PIGGYBACK 600 MG IV (05:10)
[2019-09-22 05:14] LABS: Reflexed Lactate in 2 Hours Y
[2019-09-22] MEDS: AMIODARONE 360 MG/200 ML PIGGYBACK 33.33 MG IV (05:26)
--- NOTE | 2019-09-22 05:27 | PC.NURSE ---
nick armando remains in place.
--- NOTE | 2019-09-22 06:01 | PC.NURSE ---
amiodarone to continue in ICU
[2019-09-22] MEDS: LACTATED RINGERS 1,000 ML 250 ML IV (06:30)
--- NOTE | 2019-09-22 08:47 | P.HP_ITS ---
History of Present Illness History of Present Illness Date Patient Seen: 09/22/19 Time Patient Seen: 06:05 Chief complaint: Ground level fall Narrative: Patient is an 84 yo female with hypertension, hyperlipidemia, diabetes, atrial fibrillation anticoagulated with warfarin who was found down at home last night by police doing a welfare check. She tells me that she talked both of her sons on but doesn't remember after that. She does not know why she was down or when she fell. She has no current complaints of pain, shortness of breath, or nausea. She was responsive to paramedics on arrival and given 2 L of fluids in the field. She was found to be hypothermic as well at 95 degrees F. In the ED she was warmed and given an additional liter of fluids. Review of her chart shows that she was seen last in clinic on 08/22 and had medication adjustments to help control her atrial fibrillation and manage her fluids. She was thought to be dry so her diuretics were stopped. Of note she was down 14 pounds in 2 weeks. Her metoprolol was increased to 75 mg twice daily. Her diuretics were stopped (previously on furosemide and chlorthalidone). She did have lab work that day which showed low potassium with repeat a week later normal. An echocardiogram was ordered. She did not attend her follow up visit, INR check or echo. She tells me that she did not feel well. Her medications were brought in with her and she has two bottles of metoprolol with 2 different doses on them as well as chlorthalidone. She has two bottles of metformin as well. She tells me she does her own medication and puts them in a pill organizer. Patient History Surgical History (Updated 02/28/18 @ 16:17 by Marlene Faulkner) Anesthesia (Resolved) Cataracts, bilateral (Resolved ~2013) H/O varicose vein ligation (Resolved ~09/1961) Surgical procedure planned (Resolved ~07/2013) Family & Social History Family History (Updated 05/20/14 @ 00:00 by Clementine Hopson) Father Cancer Brother No problems noted. Mother No problems noted. Social History: Prior Living Arrangements House other Crossword puzzles, walking Tobacco & Substance use: Smoking Status Never smoker alcohol intake never alcohol intake frequency 0-2 drinks per day Substance Use Type does not use Meds Home Medications and Allergies Home Medications Medication Instructions Recorded Confirmed Type epinephrine [EpiPen 2-Ruel] 0.3 mg IM SEE INSTRUCTIONS PRN #1 01/11/18 09/22/19 Rx kit diabetic supplies, miscellan. #100 strip 05/18/18 09/22/19 Rx metformin 500 mg tablet 1,000 mg PO BIDCC #100 tab 12/04/18 09/22/19 Rx atorvastatin [Lipitor] 10 mg PO HS #90 tab 12/25/18 09/22/19 Rx losartan 50 mg tablet 50 mg PO BID #180 tab 12/25/18 09/22/19 Rx magnesium oxide 400 mg PO BID #100 tab 03/26/19 09/22/19 Rx warfarin 5 mg tablet 5 mg PO QDAY #180 tab 04/13/19 09/22/19 Rx amlodipine 2.5 mg tablet 2.5 mg PO DAILY #30 tab 06/04/19 09/22/19 Rx pantoprazole 20 mg tablet,delayed 20 mg PO EVERY OTHER DAY #100 tab 06/12/19 09/22/19 Rx release metoprolol succinate 25 mg 75 mg PO BID #90 tab 08/22/19 09/22/19 Rx tablet,extended release 24 hr potassium chloride 10 mEq 20 meq PO QAM tab 08/22/19 09/22/19 History tablet,extended release(part/cryst) triamcinolone acetonide 0.05 % 1 applictn TOP TID PRN #430 gram 08/22/19 09/22/19 Rx topical ointment chlorthalidone 12.5 mg PO DAILY 09/22/19 09/22/19 History diltiazem HCl [Cartia XT] 120 mg PO DAILY 09/22/19 09/22/19 History Allergies Allergy/AdvReac Type Severity Reaction Status Date / Time crab [CRAB] Allergy Unknown VISION Verified 08/22/19 14:37 CHANGES hornet venom [HORNET VENOM] Allergy Unknown Verified 08/22/19 14:37 YELLOW JACKET BEE Allergy Unknown Uncoded 08/22/19 14:37 Review of Systems Review of Systems Narrative: A complete review of systems was negative except for the elements described in the HPI. Exam Vital Signs (past 8 hours): - 09/22/19 02:55 09/22/19 03:08 09/22/19 03:40 Temperature 97 F L Pulse Rate 146 H 144 H 145 H Respiratory Rate 35 H Blood Pressure 129/113 H 112/86 95/66 Blood Pressure [Right Arm] Pulse Oximetry 98 09/22/19 04:43 09/22/19 05:10 09/22/19 05:27 Temperature 96.6 F L Pulse Rate 134 H 132 H Respiratory Rate 21 24 Blood Pressure Blood Pressure [Right Arm] 90/76 114/98 H Pulse Oximetry 93 96 09/22/19 06:18 09/22/19 07:18 09/22/19 08:00 Temperature 98.2 F 97.8 F Pulse Rate 90 120 H Respiratory Rate 15 17 Blood Pressure 114/58 L 114/51 L Blood Pressure [Right Arm] Pulse Oximetry 75 L 94 Oxygen Delivery Method Nasal Cannula Oxygen Flow Rate 3 Narrative Exam Narrative: General: Well-developed, pale, elderly, female, no acute distress. Heart: tachy rate and irregular rhythm, no murmurs appreciated Lungs: Clear to auscultation bilaterally, no wheezes, rales or rhonchi Abd: soft, nontender Extremities: Warm and well perfused, no edema Skin: petechiae over the right lateral thigh, bruising to the left groin, other lesions noted and photographed by nursing Objective Imaging Echo: Radiologist's impression: From 12/2017 Interpretation Summary 1) Mildly dilated left ventricle with normal wall motion and normal systolic function (EF 55-60%). 2) Mildly to moderately dilated right ventricle with normal function. 3) There is moderate tricuspid regurgitation. 4) The right ventricular systolic pressure is estimated at 65 mmHg assuming a right atrial pressure of 3 mm Hg. 5) Compared to the Echo done 01/24/2017, pulmonary hypertension has increase (estimated PASP went up from 37mmHg to 65mmHg) and tricuspid regurgitation has increased from mild range to moderate range on this study. Labs Result Diagrams: 09/22/19 08:33 09/22/19 08:33 Labs: Laboratory Results - last 24 hr 09/22/19 09/22/19 09/22/19 03:00 03:00 03:00 WBC 12.2 H RBC 4.71 Hgb 10.1 L Hct 33.3 L MCV 70.7 L MCH 21.5 L MCHC 30.4 RDW 19.4 H Plt Count 169 Neut % (Auto) Not Reportable Lymph % (Auto) Not Reportable [place] % (Auto) Not Reportable Eos % (Auto) Not Reportable Baso % (Auto) Not Reportable Lymph # (Auto) Not Reportable [place] # (Auto) Not Reportable Baso # (Auto) Not Reportable Total Counted 100 Seg Neutrophils % 87.0 H Lymphocytes % (Manual) 6.0 L Monocytes % (Manual) 7.0 Neutrophils # (Manual) 75619 H RBC Morphology See below Polychromasia 1+ H Hypochromasia 2+ H Anisocytosis 2+ H Target Cells 1+ H Jaspal Cells 3+ H Acanthocytes (Spur) 2+ H PT 30.0 H INR 2.6 H APTT 36 Sodium 141 Potassium 5.2 H Chloride 112 H Carbon Dioxide 12 L BUN 64 H Creatinine 2.50 H Estimated GFR 18.4 L BUN/Creatinine Ratio 25.6 H Glucose 113 H Lactate Calcium 9.7 Magnesium 2.3 Total Bilirubin 4.5 H AST 160 H ALT 78 H Alkaline Phosphatase 104 Total Creatine Kinase 975 H CK-MB (CK-2) 22.20 H CK-MB (CK-2) Rel Index 2.3 Troponin I 0.103 H B-Natriuretic Peptide 756 H Total Protein 5.4 L Albumin 3.1 L Globulin 2.3 Albumin/Globulin Ratio 1.3 Procalcitonin Urine Color Urine Appearance Urine pH Ur Specific [place] Urine Protein Urine Glucose (UA) Urine Ketones Urine Occult Blood Urine Nitrate Urine Bilirubin Urine Ictotest Urine Urobilinogen Ur Leukocyte Esterase Urine RBC Urine WBC Ur Squamous Epith Cells Calcium Oxalate Crystal Uric Acid Crystals Amorphous Sediment Urine Bacteria Hyaline Casts Ur Culture Indicated? Nasal Screen MRSA (PCR) 09/22/19 09/22/19 09/22/19 03:00 03:07 03:55 WBC RBC Hgb Hct MCV MCH MCHC RDW Plt Count Neut % (Auto) Lymph % (Auto) [place] % (Auto) Eos % (Auto) Baso % (Auto) Lymph # (Auto) [place] # (Auto) Baso # (Auto) Total Counted Seg Neutrophils % Lymphocytes % (Manual) Monocytes % (Manual) Neutrophils # (Manual) RBC Morphology Polychromasia Hypochromasia Anisocytosis Target Cells [place] Cells Acanthocytes (Spur) PT INR APTT Sodium Potassium Chloride Carbon Dioxide BUN Creatinine Estimated GFR BUN/Creatinine Ratio Glucose Lactate 6.8 H* Calcium Magnesium Total Bilirubin AST ALT Alkaline Phosphatase Total Creatine Kinase CK-MB (CK-2) CK-MB (CK-2) Rel Index Troponin I B-Natriuretic Peptide Total Protein Albumin Globulin Albumin/Globulin Ratio Procalcitonin 0.29 Urine Color Dark yellow Urine Appearance Clear Urine pH 5.0 Ur Specific [place] 1.025 Urine Protein 2+ H Urine Glucose (UA) Negative Urine Ketones Trace H Urine Occult Blood 1+ H Urine Nitrate Negative Urine Bilirubin 1+ H Urine Ictotest Positive H Urine Urobilinogen 0.2 Ur Leukocyte Esterase Negative Urine RBC 1-5/hpf Urine WBC None seen Ur Squamous Epith Cells 0-1 /hpf Calcium Oxalate Crystal Occasional H Uric Acid Crystals Occasional Amorphous Sediment 1+ Urine Bacteria Few (2-10) H Hyaline Casts 1-5/lpf Ur Culture Indicated? Cult not indicated Nasal Screen MRSA (PCR) 09/22/19 09/22/19 05:20 05:55 WBC RBC Hgb Hct MCV MCH MCHC RDW Plt Count Neut % (Auto) Lymph % (Auto) [place] % (Auto) Eos % (Auto) Baso % (Auto) Lymph # (Auto) [place] # (Auto) Baso # (Auto) Total Counted Seg Neutrophils % Lymphocytes % (Manual) Monocytes % (Manual) Neutrophils # (Manual) RBC Morphology Polychromasia Hypochromasia Anisocytosis Target Cells [place] Cells Acanthocytes (Spur) PT INR APTT Sodium Potassium Chloride Carbon Dioxide BUN Creatinine Estimated GFR BUN/Creatinine Ratio Glucose Lactate 7.0 H* Calcium Magnesium Total Bilirubin AST ALT Alkaline Phosphatase Total Creatine Kinase CK-MB (CK-2) CK-MB (CK-2) Rel Index Troponin I B-Natriuretic Peptide Total Protein Albumin Globulin Albumin/Globulin Ratio Procalcitonin Urine Color Urine Appearance Urine pH Ur Specific [place] Urine Protein Urine Glucose (UA) Urine Ketones Urine Occult Blood Urine Nitrate Urine Bilirubin Urine Ictotest Urine Urobilinogen Ur Leukocyte Esterase Urine RBC Urine WBC Ur Squamous Epith Cells Calcium Oxalate Crystal Uric Acid Crystals Amorphous Sediment Urine Bacteria Hyaline Casts Ur Culture Indicated? Nasal Screen MRSA (PCR) Negative for mrsa Assessment & Plan Assessment & Plan narrative: 1. Ground level fall for unknown reason. Possible syncopal episode. Head CT without evidence of stroke or bleed. 2. Atrial fibrillation with rapid ventricular response causing type II mercedez cardial infarction and decreased perfusion. Failed trial of diltiazem with lowered blood pressure. Consult with cardiology reccomended amiodarone. So far has not controlled rate. Will Continue with amodarone protocol and try 5 mg metoprolol to see if we can decrease rate and increase her perfusion. 3. Heart failure secondary to poor rate control, pulmonary hypertension and tricuspid insufficiency. Patient had been having symptoms of heart failure for the past few month with modifications in her rate control and diuretics. Echocardiogram as soon as possible to assess current status. Monitor respiratory status. Supplemental oxygen as needed. 4. rhabdomyolysis. Will continue to balance aggressive hydration with her heart function. Monitor CK. 5. Acute on chronic renal failure stage 3. Balanced hydration and diuretics. Rate control will certainly improve perfusion. Avoid nephrotoxic medications. 6. Transaminitis. likely secondary to poor perfusion as well. Monitor for now. 7. sepsis? No obvious source of infection. Has received a dose of antibiotics in ED. Will monitor cultures. Elevated lactate possibly from metformin use? 8. diabetes. will hold metformin. monitor blood sugars and use sliding scale until she is eating. 9. Ecchymosis and full thickness possible pressure ulcer. Consider wound care consult. DVT prophylaxis: current therapeutic INR Code status: partial, everything but CPR Patient's status is critical at this time with failure of heart, liver and renal failure and will require close monitoring in the ICU for at least the next 24 hours while we attempt to establish rate control and treat her rhabdomyolysis. She will require additional inpatient care after this as well. Over 90 minutes was spent with this patient in critical care time. Time Spent With Patient Time with patient: Greater than 35 minutes
[2019-09-22 08:54] LABS: Albumin 3.2 g/dL (3.5-5.0); Albumin Globulin Ratio 1.3 (1.0-2.8); Alkaline Phosphatase 118 U/L (38-126); Aspartate Aminotransferase 208 IU/L (14-36); Bilirubin Total 4.8 mg/dL (0.2-1.3); Blood Urea Nitrogen 65 mg/dL (7-17); Calcium 9.3 mg/dL (8.4-10.2); Carbon Dioxide 11 mmol/L (22-32); Chloride 114 mmol/L (98-107); Creatine Kinase 897 U/L (30-135); Estimated Glomerular Filt Rate 18.4 mL/min (>60); Globulin 2.4 g/dL (1.7-4.1); Glucose 112 mg/dL (80-110); Magnesium 2.2 mg/dL (1.6-2.3); Phosphorous 6.3 mg/dL (2.8-4.1); Sodium 142 mmol/L (137-145); Total Protein 5.6 g/dL (6.3-8.2)
[2019-09-22 08:56] LABS: Add Manual Diff / Slide Review NO; Basophils Absolute Auto 0 /uL (0-100); Eosinophils Absolute Auto 0 /uL (0-450); Hematocrit 34.4 % (36-46); Hemoglobin 10.4 g/dL (12.0-16.0); Lymphocytes Absolute Auto 500 /uL (1100-4500); Lymphocytes Percent Auto 3.9 % (25-40); Mean Corpuscular HGB Conc 30.2 % (30-36); Mean Corpuscular Hemoglobin 21.5 PG (26-34); Mean Corpuscular Volume 71.3 fL (80-100); Monocytes Absolute Auto 700 /uL (0-900); Monocytes Percent Auto 5.4 % (3-14); Neutrophils Absolute Auto 11800 /uL (1500-7000); Neutrophils Percent Auto 90.7 % (50-75); Platelet Count 156 X10^3/uL (150-400); Red Blood Cell Count 4.82 X10^6/uL (4.0-5.2); Red Cell Distribution Width 19.5 % (11.6-14.8)
[2019-09-22 09:01] LABS: Alanine Aminotransferase 97 IU/L (<35); HEMOLYSIS < 15 (0-50); Potassium 5.4 mmol/L (3.4-5.1)
[2019-09-22 09:06] LABS: Troponin I 0.115 ng/mL (0.01-0.034)
[2019-09-22 09:09] LABS: Lactate (Lactic Acid) 7.5 mmol/L (0.7-2.1)
[2019-09-22 09:11] LABS: CKMB % Relative Index 2.7 % (1.5-5.0)
[2019-09-22] MEDS: PANTOPRAZOLE 40 MG VIAL IV (09:32)
[2019-09-22] MEDS: METOPROLOL TARTRATE 5 MG/5 ML INJ IV (09:32)
[2019-09-22] MEDS: FUROSEMIDE 20 MG/2 ML VIAL IV (09:37)
--- NOTE | 2019-09-22 09:53 | DI.RAD.S_ITS ---
PROCEDURE: XR CHEST 1V INDICATIONS: crackles, tachypnea TECHNIQUE: One view of the chest was acquired. COMPARISON: Located Within [facility], CT, CT HEAD/BRAIN WO CON, 09/22/2019, 3:04. Located Within [facility], CR, XR PELVIS 1-2V, 09/22/2019, 2:55. Located Within [facility], CR, XR CHEST 1V, 09/22/2019, 2:55. Located Within [facility], CR, XR CHEST 2V, 07/31/2019, 12:13. Located Within [facility], CR, CHEST 1 VIEW, 12/29/2017, 13:09. FINDINGS: Surgical changes and devices: None. Lungs and pleura: Mild interstitial prominence is seen. No pleural effusions or pneumothorax. Mediastinum: The cardiac contours are moderately to prominently enlarged. The aorta demonstrates calcification and tortuosity. Bones and chest wall: No suspicious bony lesions. Age-appropriate bony degenerative changes are seen. Mild dextroconvex scoliotic curvature is seen. Overlying soft tissues appear unremarkable. IMPRESSION: Cardiomegaly with interstitial prominence. CHF is suspected. Please correlate with known patient history. Dictated by: Garland Neville M.D. on 09/22/2019 at 9:22 Approved by: Garland Neville M.D. on 09/22/2019 at 9:23
--- NOTE | 2019-09-22 10:00 | DI.ECHO.S_ITS ---
Echocardiogram Report + + :Name: DARCY BECK Study Date: 09/22/2019 Height: 67 in : :Hospital Exam Location: [facility] Weight: 180 lb : : Gender: Female BSA: 1.9 m2 : :: 1935 Age: 84 yrs BP: 127/52 mmHg: :Reason For Study: Uncontrolled A-Fib/ Heart Failure : :Ordering Physician: Jaki : :Hospitalist Performed By: Latosha Page : :Referring: JOSSIE SEWELL : + + Interpretation Summary 1) Moderately enlarged left ventricle with severely reduced systolic function (EF 20-25%). 2) Severely enlarged right ventricle with severely reduced function. 3) Both atria are severely dilated. 4) There is severe tricuspid regurgitation. 5) The right ventricular systolic pressure is estimated to be at least 31 mmHg based on an estimated right atrial pressure of 15 mm Hg. 6) There is a small loculated pericardial effusion. No echo/doppler evidence of cardiac tamponade. 7) Compared to the echo 12/30/2017, severe LV systolic dysfunctoin and severe RV enlargement along with RV systolic dysfunction are present on this study. I spoke with Dr. Jossie Sewell over the phone and conveyed the findings of this echo. Procedure: A two-dimensional transthoracic echocardiogram with color flow and Doppler was performed. The study quality was technically adequate. Comparison is made with the echocardiogram of 12/30/2017. The patient was in atrial fibrillation with heart rates between 81-115 bpm during the exam. Left Ventricle: The left ventricle is moderately dilated. Left ventricular wall thickness is at the upper limits of normal. The ejection fraction is estimated to be 20-25%. Left ventricular function has significantly worsened compared to the previous exam. Diastolic function could not be accurately assessed due to atrial fibrillation. Right Ventricle: The right ventricle is severely dilated. Right ventricular systolic function is severely reduced. Right ventricular systolic function has decreased since previous exam. Atria: Both atria are severely dilated. The left atrium has mildly increased in size since the prior echo exam. The right atrium has significantly increased in size since the prior echo exam. There is no Doppler evidence for an interatrial shunt. Mitral Valve: The mitral valve leaflets appear mildly thickened, but open well. There is mild mitral annular calcification. There is mild mitral regurgitation. Aortic Valve: The aortic valve is grossly normal. There is no aortic valve stenosis. There is trace aortic regurgitation. Tricuspid Valve: There is severe tricuspid regurgitation. Compared to the prior echo exam, there has been an increase in TR severity. The right ventricular systolic pressure is estimated to be at least 31 mmHg based on an estimated right atrial pressure of 15 mm Hg. Pulmonic Valve: The pulmonic valve is not well visualized. There is trace pulmonic regurgitation. Great Vessels: The aortic root is normal size. The pulmonary artery is not well visualized, but is probably normal size. The IVC is dilated (diameter is greater than 2.1 cm) and it collapses less than 50% with a sniff. This suggests a high right atrial pressure of 15 mm Hg. Pericardium/ Pleura There is a small loculated pericardial effusion. Left sided pleural effusion can not be ruled out. MMode/2D Measurements & Calculations LVIDd: 5.8 cm LVOT diam: 1.9 cm LVIDs: 4.7 cm Ao root diam: 3.4 cm FS: 19.2 % IVSd: 1.1 cm LVPWd: 0.97 cm LV qureshi. diameter/BSA (cm/m^2): 3.0 LV sys. diameter/BSA (cm/m^2): 2.4 LA A2 area: 27.6 cm2 RA long axis: 6.8 cm LA A4 area: 26.5 cm2 RA area: 40.1 cm2 LA length (vol): 5.7 cm RA vol: 200.1 ml LA vol: 109.2 ml RA : 103.5 ml/m2 LA vol index: 56.5 ml/m2 IVC diam: 3.3 cm RVD1 (basal): 6.0 cm RVD2 (mid): 5.0 cm TAPSE: 1.5 cm Doppler Measurements & Calculations Ao V2 max: 116.1 cm/sec LVOT Max Chandra: 63.1 cm/sec Ao V2 mean: 74.9 cm/sec LV V1 max P.7 mmHg Ao max P.4 mmHg LV V1 VTI: 8.8 cm Ao mean P.6 mmHg JOSHUA(I,D): 1.3 cm2 Ao V2 VTI: 18.3 cm JOSHUA(V,D): 1.5 cm2 sev ratio: 0.48 JOSHUA indexed to BSA (cm^2/m^2): 0.69 MV P1/2t: 68.6 msec TR max chandra: 200.6 cm/sec TR max P.3 mmHg PA V2 max: 59.8 cm/sec PA V2 mean: 39.6 cm/sec PA mean P.74 mmHg PA Accel Time: 0.08 sec MV P1/2t max chandra: 67.4 cm/sec SV(LVOT): 24.4 ml MVA(P1/2t): 3.2 cm2 _ Reading Physician:12:37 PM
--- NOTE | 2019-09-22 10:44 | PC.NURSE ---
Day Shift Note Pt awake but sleepy and answering some questions, able to state she is at the hospital. Soft wrist restraints removed at 0720. Afib in the 120-130s on AM assessment, amiodarone gtt infusing at 1 mg/min. BP stable (see VS trends). Pt denies pain, denies shortness of breath but breathing appears labored in the 20s, SpO2 94% on 2L NC. Crackles to posterior lungs with scattered rhonchi. 1L bolus completed (total of 4L in including EMS). Lactate 7.5 - results reported to Dr. Sewell, as well as urine output of 10 ml via nolasco, HR in the 130s, and respiratory starus. 5 mg IV metoprolol ordered and given as well as 20 mg of Lasix. CXR obtained and echo being done at this time. Total of 25 ml of urine out this shift, MD aware. Call light within reach, bed alarm on.
[2019-09-22 10:56] LABS: Reflexed Lactate in 2 Hours Y
[2019-09-22] MEDS: AMIODARONE 360 MG/200 ML PIGGYBACK 16.7 MG IV (11:45)
[2019-09-22 12:06] LABS: Lactate 2HR (Lactic Acid Rflx) 9.6 mmol/L (0.7-2.1)
[2019-09-22 12:21] LABS: Influenza A - CEPHEID Flu A NEGATIVE (NEGATIVE); Influenza B - CEPHEID Flu B NEGATIVE (NEGATIVE)
--- NOTE | 2019-09-22 13:18 | P.PN_ITS ---
Subjective Subjective Date Patient Seen: 09/22/19 Time Patient Seen: 13:18 Interval history: Returned to see patient after discussing echo results with Dr. Garner. Patient is less responsive. Answers to name but doesn't make any purposeful responses to questions. Attempt at full mask for oxygen failed because she kept removing it. Exam Vital Signs (past 8 hours): - 09/22/19 05:27 09/22/19 06:18 09/22/19 07:18 Temperature 96.6 F L 98.2 F 97.8 F Pulse Rate 90 Respiratory Rate 15 Blood Pressure 114/58 L Pulse Oximetry 75 L 09/22/19 08:00 09/22/19 09:00 09/22/19 10:00 Temperature Pulse Rate 120 H 118 H 89 Respiratory Rate 17 27 H 26 H Blood Pressure 114/51 L 117/54 L 127/52 L Pulse Oximetry 94 85 L 09/22/19 11:30 09/22/19 12:50 09/22/19 13:00 Temperature 97.6 F Pulse Rate 93 H Respiratory Rate 26 H Blood Pressure 84/59 L Pulse Oximetry 95 92 94 Fraction of Inspired Oxygen 35 Oxygen Delivery Method Venturi Mask Oxygen Flow Rate 9 Narrative Exam Narrative: General: Well-developed, pale, elderly, female,acute distress Heart: Irregular rate irregular rhythm, no murmurs appreciated Lungs: crackles bilaterally Abd: soft, nontender Extremities: Warm and well perfused, 2+ pitting edema Objective Labs Result Diagrams: 09/22/19 08:33 09/22/19 08:33 Labs: Laboratory Results - last 24 hr 09/22/19 09/22/19 09/22/19 03:00 03:00 03:00 WBC 12.2 H RBC 4.71 Hgb 10.1 L Hct 33.3 L MCV 70.7 L MCH 21.5 L MCHC 30.4 RDW 19.4 H Plt Count 169 Neut % (Auto) Not Reportable Lymph % (Auto) Not Reportable [place] % (Auto) Not Reportable Eos % (Auto) Not Reportable Baso % (Auto) Not Reportable Neut # (Auto) Lymph # (Auto) Not Reportable [place] # (Auto) Not Reportable Eos # (Auto) Baso # (Auto) Not Reportable Total Counted 100 Seg Neutrophils % 87.0 H Lymphocytes % (Manual) 6.0 L Monocytes % (Manual) 7.0 Neutrophils # (Manual) 83519 H RBC Morphology See below Polychromasia 1+ H Hypochromasia 2+ H Anisocytosis 2+ H Target Cells 1+ H [place] Cells 3+ H Acanthocytes (Spur) 2+ H PT 30.0 H INR 2.6 H APTT 36 Sodium 141 Potassium 5.2 H Chloride 112 H Carbon Dioxide 12 L BUN 64 H Creatinine 2.50 H Estimated GFR 18.4 L BUN/Creatinine Ratio 25.6 H Glucose 113 H Lactate Calcium 9.7 Phosphorus Magnesium 2.3 Total Bilirubin 4.5 H AST 160 H ALT 78 H Alkaline Phosphatase 104 Total Creatine Kinase 975 H CK-MB (CK-2) 22.20 H CK-MB (CK-2) Rel Index 2.3 Troponin I 0.103 H B-Natriuretic Peptide 756 H Total Protein 5.4 L Albumin 3.1 L Globulin 2.3 Albumin/Globulin Ratio 1.3 Procalcitonin Urine Color Urine Appearance Urine pH Ur Specific [place] Urine Protein Urine Glucose (UA) Urine Ketones Urine Occult Blood Urine Nitrate Urine Bilirubin Urine Ictotest Urine Urobilinogen Ur Leukocyte Esterase Urine RBC Urine WBC Ur Squamous Epith Cells Calcium Oxalate Crystal Uric Acid Crystals Amorphous Sediment Urine Bacteria Hyaline Casts Ur Culture Indicated? Nasal Screen MRSA (PCR) Influenza A (RT-PCR) Influenza B (RT-PCR) 09/22/19 09/22/19 09/22/19 03:00 03:07 03:55 WBC RBC Hgb Hct MCV MCH MCHC RDW Plt Count Neut % (Auto) Lymph % (Auto) [place] % (Auto) Eos % (Auto) Baso % (Auto) Neut # (Auto) Lymph # (Auto) [place] # (Auto) Eos # (Auto) Baso # (Auto) Total Counted Seg Neutrophils % Lymphocytes % (Manual) Monocytes % (Manual) Neutrophils # (Manual) RBC Morphology Polychromasia Hypochromasia Anisocytosis Target Cells [place] Cells Acanthocytes (Spur) PT INR APTT Sodium Potassium Chloride Carbon Dioxide BUN Creatinine Estimated GFR BUN/Creatinine Ratio Glucose Lactate 6.8 H* Calcium Phosphorus Magnesium Total Bilirubin AST ALT Alkaline Phosphatase Total Creatine Kinase CK-MB (CK-2) CK-MB (CK-2) Rel Index Troponin I B-Natriuretic Peptide Total Protein Albumin Globulin Albumin/Globulin Ratio Procalcitonin 0.29 Urine Color Dark yellow Urine Appearance Clear Urine pH 5.0 Ur Specific [place] 1.025 Urine Protein 2+ H Urine Glucose (UA) Negative Urine Ketones Trace H Urine Occult Blood 1+ H Urine Nitrate Negative Urine Bilirubin 1+ H Urine Ictotest Positive H Urine Urobilinogen 0.2 Ur Leukocyte Esterase Negative Urine RBC 1-5/hpf Urine WBC None seen Ur Squamous Epith Cells 0-1 /hpf Calcium Oxalate Crystal Occasional H Uric Acid Crystals Occasional Amorphous Sediment 1+ Urine Bacteria Few (2-10) H Hyaline Casts 1-5/lpf Ur Culture Indicated? Cult not indicated Nasal Screen MRSA (PCR) Influenza A (RT-PCR) Influenza B (RT-PCR) 09/22/19 09/22/19 09/22/19 05:20 05:55 08:33 WBC 13.0 H RBC 4.82 Hgb 10.4 L Hct 34.4 L MCV 71.3 L MCH 21.5 L MCHC 30.2 RDW 19.5 H Plt Count 156 Neut % (Auto) 90.7 H Lymph % (Auto) 3.9 L [place] % (Auto) 5.4 Eos % (Auto) 0.0 L Baso % (Auto) 0.0 Neut # (Auto) 56409 H Lymph # (Auto) 500 L [place] # (Auto) 700 Eos # (Auto) 0 Baso # (Auto) 0 Total Counted Seg Neutrophils % Lymphocytes % (Manual) Monocytes % (Manual) Neutrophils # (Manual) RBC Morphology Polychromasia Hypochromasia Anisocytosis Target Cells [place] Cells Acanthocytes (Spur) PT INR APTT Sodium Potassium Chloride Carbon Dioxide BUN Creatinine Estimated GFR BUN/Creatinine Ratio Glucose Lactate 7.0 H* Calcium Phosphorus Magnesium Total Bilirubin AST ALT Alkaline Phosphatase Total Creatine Kinase CK-MB (CK-2) CK-MB (CK-2) Rel Index Troponin I B-Natriuretic Peptide Total Protein Albumin Globulin Albumin/Globulin Ratio Procalcitonin Urine Color Urine Appearance Urine pH Ur Specific [place] Urine Protein Urine Glucose (UA) Urine Ketones Urine Occult Blood Urine Nitrate Urine Bilirubin Urine Ictotest Urine Urobilinogen Ur Leukocyte Esterase Urine RBC Urine WBC Ur Squamous Epith Cells Calcium Oxalate Crystal Uric Acid Crystals Amorphous Sediment Urine Bacteria Hyaline Casts Ur Culture Indicated? Nasal Screen MRSA (PCR) Negative for mrsa Influenza A (RT-PCR) Influenza B (RT-PCR) 09/22/19 09/22/19 09/22/19 08:33 08:33 08:33 WBC RBC Hgb Hct MCV MCH MCHC RDW Plt Count Neut % (Auto) Lymph % (Auto) [place] % (Auto) Eos % (Auto) Baso % (Auto) Neut # (Auto) Lymph # (Auto) [place] # (Auto) Eos # (Auto) Baso # (Auto) Total Counted Seg Neutrophils % Lymphocytes % (Manual) Monocytes % (Manual) Neutrophils # (Manual) RBC Morphology Polychromasia Hypochromasia Anisocytosis Target Cells [place] Cells Acanthocytes (Spur) PT INR APTT Sodium 142 Potassium 5.4 H Chloride 114 H Carbon Dioxide 11 L BUN 65 H Creatinine 2.50 H Estimated GFR 18.4 L BUN/Creatinine Ratio 26.0 H Glucose 112 H Lactate 7.5 H* Calcium 9.3 Phosphorus 6.3 H Magnesium 2.2 Total Bilirubin 4.8 H AST 208 H ALT 97 H Alkaline Phosphatase 118 Total Creatine Kinase 897 H CK-MB (CK-2) 24.20 H CK-MB (CK-2) Rel Index 2.7 Troponin I 0.115 H B-Natriuretic Peptide Total Protein 5.6 L Albumin 3.2 L Globulin 2.4 Albumin/Globulin Ratio 1.3 Procalcitonin Urine Color Urine Appearance Urine pH Ur Specific [place] Urine Protein Urine Glucose (UA) Urine Ketones Urine Occult Blood Urine Nitrate Urine Bilirubin Urine Ictotest Urine Urobilinogen Ur Leukocyte Esterase Urine RBC Urine WBC Ur Squamous Epith Cells Calcium Oxalate Crystal Uric Acid Crystals Amorphous Sediment Urine Bacteria Hyaline Casts Ur Culture Indicated? Nasal Screen MRSA (PCR) Influenza A (RT-PCR) Influenza B (RT-PCR) 09/22/19 09/22/19 11:30 11:38 WBC RBC Hgb Hct MCV MCH MCHC RDW Plt Count Neut % (Auto) Lymph % (Auto) [place] % (Auto) Eos % (Auto) Baso % (Auto) Neut # (Auto) Lymph # (Auto) [place] # (Auto) Eos # (Auto) Baso # (Auto) Total Counted Seg Neutrophils % Lymphocytes % (Manual) Monocytes % (Manual) Neutrophils # (Manual) RBC Morphology Polychromasia Hypochromasia Anisocytosis Target Cells [place] Cells Acanthocytes (Spur) PT INR APTT Sodium Potassium Chloride Carbon Dioxide BUN Creatinine Estimated GFR BUN/Creatinine Ratio Glucose Lactate 9.6 H* Calcium Phosphorus Magnesium Total Bilirubin AST ALT Alkaline Phosphatase Total Creatine Kinase CK-MB (CK-2) CK-MB (CK-2) Rel Index Troponin I B-Natriuretic Peptide Total Protein Albumin Globulin Albumin/Globulin Ratio Procalcitonin Urine Color Urine Appearance Urine pH Ur Specific [place] Urine Protein Urine Glucose (UA) Urine Ketones Urine Occult Blood Urine Nitrate Urine Bilirubin Urine Ictotest Urine Urobilinogen Ur Leukocyte Esterase Urine RBC Urine WBC Ur Squamous Epith Cells Calcium Oxalate Crystal Uric Acid Crystals Amorphous Sediment Urine Bacteria Hyaline Casts Ur Culture Indicated? Nasal Screen MRSA (PCR) Influenza A (RT-PCR) Flu a negative Influenza B (RT-PCR) Flu b negative Assessment & Plan Assessment & Plan narrative: Patient is less alert with increased work of breathing. Does not respond to direct questioning. LVEF has decreased to 20% on echocardiogram with severe right sided dysfunction. Kidney function worsening with little to no urine output despite furosemide. Dr. Garner recommends transfer to [facility] for nephrology assitance with diuresis to relieve her fluid overload from prior fluid resuscitation. Currently awaiting decision from family to whether this is the direction they want to go or to stay here with comfort measures. Will try to escalate diuresis in the interim. Time Spent With Patient Time with patient: Greater than 35 minutes
[2019-09-22] MEDS: FUROSEMIDE 40 MG/4 ML VIAL IV (13:23)
--- NOTE | 2019-09-22 14:17 | SLP.IPNOTE ---
Orders received. Consulted with Nsg who reports pt has declined. Swallow evaluation not performed. Will continue to follow and evaluate as appropriate.
--- NOTE | 2019-09-22 15:08 | CM.DANOTE ---
DCP Brief Note and pt Patient is an 84 year old female who was admitted on 09/22/19 for GLF. Pt has [facility] for insurance and her PCP is Dr. Chan. EMR was reviewed. Per MD, pt was found down by police after doing a Welfare Check as family could not reach the pt and was down for an unknown amount of time. Pt currently confused and in soft wrist restraints due to pulling on lines and in AFIB. Per RN, son to be bedside around 1200. SW attempted bedside assessment but pt had multiple family members, MD, RN and RT in room bedside discussing Goals of Care and possible change to Comfort Care. Per RN, decision for comfort made and pt around 1500 today with family bedside. RIVERA Bell
--- NOTE | 2019-09-22 15:15 | PC.NURSE ---
PT WITH WAXING AND WANING FROM MY ARRIVAL AT 1100 AM- INTERMITTENT PULLING AT LINES AND CLOTHING- UPDATES FREQ TO SON AND GRANDSON- WELL DR MORGAN- DECISION MADE TO STAY HERE [facility] THAN TRANSFER PT TO [facility]- AMIODARONE GTT PER ORDER- PT BECAME UNRESPONSIVE WITH AGONAL RESPIRATIONS AND THEN ASYSTOLIC AT 1450-= FAMILY AT BEDSIDE- THEY CHOSE TO FOR PT TO GO TO [facility] AT THIS TIME
--- NOTE | 2019-09-22 16:19 | P.DS_ITS ---
History of Present Illness History of Present Illness Chief complaint: Ground level fall Narrative: Patient is an 84 yo female with hypertension, hyperlipidemia, diabetes, atrial fibrillation anticoagulated with warfarin who was found down at home last night by police doing a welfare check. She tells me that she talked both of her sons on but doesn't remember after that. She does not know why she was down or when she fell. She has no current complaints of pain, shortness of breath, or nausea. She was responsive to paramedics on arrival and given 2 L of fluids in the field. She was found to be hypothermic as well at 95 degrees F. In the ED she was warmed and given an additional liter of fluids. Review of her chart shows that she was seen last in clinic on 08/22 and had medication adjustments to help control her atrial fibrillation and manage her fluids. She was thought to be dry so her diuretics were stopped. Of note she was down 14 pounds in 2 weeks. Her metoprolol was increased to 75 mg twice daily. Her diuretics were stopped (previously on furosemide and chlorthalidone). She d id have lab work that day which showed low potassium with repeat a week later normal. An echocardiogram was ordered. She did not attend her follow up visit, INR check or echo. She tells me that she did not feel well. Her medications were brought in with her and she has two bottles of metoprolol with 2 different doses on them as well as chlorthalidone. She has two bottles of metformin as well. She tells me she does her own medication and puts them in a pill organizer. Discharge Providers Provider Date of admission: 09/22/19 06:01 Primary care physician: Pepe Chan MD Consults: 09/22/19 08:33 Consult to Speech Therapy Evaluate & Treat Comment: Physician Instructions: Evaluate and treat Discharge provider: Jossie Sewell DO Summary Hospital Course Discharge Diagnosis: Acute on chronic systolic heart failure from pulmonary hypertension and tricuspid insufficiency, LVEF 20% Rhabdomyolysis Acute on chronic renal failure stage 3 Transaminitis Atrial fibrillation with rapid ventricular response Transaminitis Hypothermia, corrected in ED Diabetes Contusions Septic shock Hospital Course: 1. Ground level fall for unknown reason. Possible syncopal episode. Head CT without evidence of stroke or bleed. 2. Atrial fibrillation with rapid ventricular response causing type II myocardial infarction and decreased perfusion. Failed trial of diltiazem with lowered blood pressure. Consult with cardiology reccomended amiodarone. Rate eventually controlled with amiodarone protocol and metoprolol single dose IV. 3. Heart failure secondary to poor rate control, pulmonary hypertension and tricuspid insufficiency. Patient had been having symptoms of heart failure for the past few months with modifications in her rate control and diuretics but no showed follow up. Prior Echocardiogram showed reduced LVEF and right sided failure. Urgent echocardiogram showed severe heart failure with LVEF of 20%. Cardiology recommended transfer to [facility] for further care. Patient would need both cardiology and nephrology. Discussed transfer with patient who at this time was less responsive (GCS score of 9) and family and decision was made to continue care at [facility] with understanding that this would be limited and likely unsuccessful. 4. rhabdomyolysis. requiring agressive hydration. 5. Acute on chronic renal failure stage 3. with continued worsening despite aggressive hydration. Attempt at diuresis was non-productive and patient became anuric. Diuretics were escalated and dopamine ordered but patient passed prior to administration. 6. Transaminitis. likely secondary to poor perfusion as well. LFT's continued to rise despite aggressive hydration. 7. sepsis? No obvious source of infection. She was hypothermic, tachycardic, tachypneic and had elevated WBC on presentation. Had received a dose of antibiotics in ED. Received 30 cc/kg bolus in ED and continuing fluids in the ED. Despite this her lactate continued to rise and her acidosis worsened resulting in failure of her kidneys. Her mental status declined as well and she became less responsive. Therefore she had multiple organ system failure despite fluid resuscitation. 8. diabetes. held metformin. 9. Ecchymosis and full thickness possible pressure ulcer from fall and lying on the floor for a prolonged period of time. Treated with barrier cream DVT prophylaxis: current therapeutic INR Code status: partial, everything but CPR It was difficult to determine if patient desired transport for higher level of care. Son, next of kin, and grandson believe she would not want transfer and would desire to be treated here. Patient's son and grandson at bedside at time of 14:50. Time Spent with Patient Time spent: Less than 30 minutes Exam Vital Signs (past 8 hours): - 09/22/19 09:00 09/22/19 10:00 09/22/19 11:30 Temperature 97.6 F Pulse Rate 118 H 89 93 H Respiratory Rate 27 H 26 H 26 H Blood Pressure 117/54 L 127/52 L 84/59 L Pulse Oximetry 85 L 95 09/22/19 12:50 09/22/19 13:00 09/22/19 14:00 Temperature 95.9 F L Pulse Rate 88 81 Respiratory Rate 25 H 23 Blood Pressure 61/32 L 156/83 H Pulse Oximetry 92 94 Fraction of Inspired Oxygen 35 Oxygen Delivery Method Venturi Mask Oxygen Flow Rate 2 Objective Labs Result Diagrams: 09/22/19 08:33 09/22/19 08:33 Labs: Laboratory Results - last 24 hr 09/22/19 09/22/19 09/22/19 03:00 03:00 03:00 WBC 12.2 H RBC 4.71 Hgb 10.1 L Hct 33.3 L MCV 70.7 L MCH 21.5 L MCHC 30.4 RDW 19.4 H Plt Count 169 Neut % (Auto) Not Reportable Lymph % (Auto) Not Reportable [place] % (Auto) Not Reportable Eos % (Auto) Not Reportable Baso % (Auto) Not Reportable Neut # (Auto) Lymph # (Auto) Not Reportable [place] # (Auto) Not Reportable Eos # (Auto) Baso # (Auto) Not Reportable Total Counted 100 Seg Neutrophils % 87.0 H Lymphocytes % (Manual) 6.0 L Monocytes % (Manual) 7.0 Neutrophils # (Manual) 72694 H RBC Morphology See below Polychromasia 1+ H Hypochromasia 2+ H Anisocytosis 2+ H Target Cells 1+ H [place] Cells 3+ H Acanthocytes (Spur) 2+ H PT 30.0 H INR 2.6 H APTT 36 Sodium 141 Potassium 5.2 H Chloride 112 H Carbon Dioxide 12 L BUN 64 H Creatinine 2.50 H Estimated GFR 18.4 L BUN/Creatinine Ratio 25.6 H Glucose 113 H Lactate Calcium 9.7 Phosphorus Magnesium 2.3 Total Bilirubin 4.5 H AST 160 H ALT 78 H Alkaline Phosphatase 104 Total Creatine Kinase 975 H CK-MB (CK-2) 22.20 H CK-MB (CK-2) Rel Index 2.3 Troponin I 0.103 H B-Natriuretic Peptide 756 H Total Protein 5.4 L Albumin 3.1 L Globulin 2.3 Albumin/Globulin Ratio 1.3 Procalcitonin Urine Color Urine Appearance Urine pH Ur Specific [place] Urine Protein Urine Glucose (UA) Urine Ketones Urine Occult Blood Urine Nitrate Urine Bilirubin Urine Ictotest Urine Urobilinogen Ur Leukocyte Esterase Urine RBC Urine WBC Ur Squamous Epith Cells Calcium Oxalate Crystal Uric Acid Crystals Amorphous Sediment Urine Bacteria Hyaline Casts Ur Culture Indicated? Nasal Screen MRSA (PCR) Influenza A (RT-PCR) Influenza B (RT-PCR) 09/22/19 09/22/19 09/22/19 03:00 03:07 03:55 WBC RBC Hgb Hct MCV MCH MCHC RDW Plt Count Neut % (Auto) Lymph % (Auto) [place] % (Auto) Eos % (Auto) Baso % (Auto) Neut # (Auto) Lymph # (Auto) [place] # (Auto) Eos # (Auto) Baso # (Auto) Total Counted Seg Neutrophils % Lymphocytes % (Manual) Monocytes % (Manual) Neutrophils # (Manual) RBC Morphology Polychromasia Hypochromasia Anisocytosis Target Cells [place] Cells Acanthocytes (Spur) PT INR APTT Sodium Potassium Chloride Carbon Dioxide BUN Creatinine Estimated GFR BUN/Creatinine Ratio Glucose Lactate 6.8 H* Calcium Phosphorus Magnesium Total Bilirubin AST ALT Alkaline Phosphatase Total Creatine Kinase CK-MB (CK-2) CK-MB (CK-2) Rel Index Troponin I B-Natriuretic Peptide Total Protein Albumin Globulin Albumin/Globulin Ratio Procalcitonin 0.29 Urine Color Dark yellow Urine Appearance Clear Urine pH 5.0 Ur Specific [place] 1.025 Urine Protein 2+ H Urine Glucose (UA) Negative Urine Ketones Trace H Urine Occult Blood 1+ H Urine Nitrate Negative Urine Bilirubin 1+ H Urine Ictotest Positive H Urine Urobilinogen 0.2 Ur Leukocyte Esterase Negative Urine RBC 1-5/hpf Urine WBC None seen Ur Squamous Epith Cells 0-1 /hpf Calcium Oxalate Crystal Occasional H Uric Acid Crystals Occasional Amorphous Sediment 1+ Urine Bacteria Few (2-10) H Hyaline Casts 1-5/lpf Ur Culture Indicated? Cult not indicated Nasal Screen MRSA (PCR) Influenza A (RT-PCR) Influenza B (RT-PCR) 09/22/19 09/22/19 09/22/19 05:20 05:55 08:33 WBC 13.0 H RBC 4.82 Hgb 10.4 L Hct 34.4 L MCV 71.3 L MCH 21.5 L MCHC 30.2 RDW 19.5 H Plt Count 156 Neut % (Auto) 90.7 H Lymph % (Auto) 3.9 L [place] % (Auto) 5.4 Eos % (Auto) 0.0 L Baso % (Auto) 0.0 Neut # (Auto) 85273 H Lymph # (Auto) 500 L [place] # (Auto) 700 Eos # (Auto) 0 Baso # (Auto) 0 Total Counted Seg Neutrophils % Lymphocytes % (Manual) Monocytes % (Manual) Neutrophils # (Manual) RBC Morphology Polychromasia Hypochromasia Anisocytosis Target Cells [place] Cells Acanthocytes (Spur) PT INR APTT Sodium Potassium Chloride Carbon Dioxide BUN Creatinine Estimated GFR BUN/Creatinine Ratio Glucose Lactate 7.0 H* Calcium Phosphorus Magnesium Total Bilirubin AST ALT Alkaline Phosphatase Total Creatine Kinase CK-MB (CK-2) CK-MB (CK-2) Rel Index Troponin I B-Natriuretic Peptide Total Protein Albumin Globulin Albumin/Globulin Ratio Procalcitonin Urine Color Urine Appearance Urine pH Ur Specific [place] Urine Protein Urine Glucose (UA) Urine Ketones Urine Occult Blood Urine Nitrate Urine Bilirubin Urine Ictotest Urine Urobilinogen Ur Leukocyte Esterase Urine RBC Urine WBC Ur Squamous Epith Cells Calcium Oxalate Crystal Uric Acid Crystals Amorphous Sediment Urine Bacteria Hyaline Casts Ur Culture Indicated? Nasal Screen MRSA (PCR) Negative for mrsa Influenza A (RT-PCR) Influenza B (RT-PCR) 09/22/19 09/22/19 09/22/19 08:33 08:33 08:33 WBC RBC Hgb Hct MCV MCH MCHC RDW Plt Count Neut % (Auto) Lymph % (Auto) [place] % (Auto) Eos % (Auto) Baso % (Auto) Neut # (Auto) Lymph # (Auto) [place] # (Auto) Eos # (Auto) Baso # (Auto) Total Counted Seg Neutrophils % Lymphocytes % (Manual) Monocytes % (Manual) Neutrophils # (Manual) RBC Morphology Polychromasia Hypochromasia Anisocytosis Target Cells [place] Cells Acanthocytes (Spur) PT INR APTT Sodium 142 Potassium 5.4 H Chloride 114 H Carbon Dioxide 11 L BUN 65 H Creatinine 2.50 H Estimated GFR 18.4 L BUN/Creatinine Ratio 26.0 H Glucose 112 H Lactate 7.5 H* Calcium 9.3 Phosphorus 6.3 H Magnesium 2.2 Total Bilirubin 4.8 H AST 208 H ALT 97 H Alkaline Phosphatase 118 Total Creatine Kinase 897 H CK-MB (CK-2) 24.20 H CK-MB (CK-2) Rel Index 2.7 Troponin I 0.115 H B-Natriuretic Peptide Total Protein 5.6 L Albumin 3.2 L Globulin 2.4 Albumin/Globulin Ratio 1.3 Procalcitonin Urine Color Urine Appearance Urine pH Ur Specific [place] Urine Protein Urine Glucose (UA) Urine Ketones Urine Occult Blood Urine Nitrate Urine Bilirubin Urine Ictotest Urine Urobilinogen Ur Leukocyte Esterase Urine RBC Urine WBC Ur Squamous Epith Cells Calcium Oxalate Crystal Uric Acid Crystals Amorphous Sediment Urine Bacteria Hyaline Casts Ur Culture Indicated? Nasal Screen MRSA (PCR) Influenza A (RT-PCR) Influenza B (RT-PCR) 09/22/19 09/22/19 11:30 11:38 WBC RBC Hgb Hct MCV MCH MCHC RDW Plt Count Neut % (Auto) Lymph % (Auto) [place] % (Auto) Eos % (Auto) Baso % (Auto) Neut # (Auto) Lymph # (Auto) [place] # (Auto) Eos # (Auto) Baso # (Auto) Total Counted Seg Neutrophils % Lymphocytes % (Manual) Monocytes % (Manual) Neutrophils # (Manual) RBC Morphology Polychromasia Hypochromasia Anisocytosis Target Cells [place] Cells Acanthocytes (Spur) PT INR APTT Sodium Potassium Chloride Carbon Dioxide BUN Creatinine Estimated GFR BUN/Creatinine Ratio Glucose Lactate 9.6 H* Calcium Phosphorus Magnesium Total Bilirubin AST ALT Alkaline Phosphatase Total Creatine Kinase CK-MB (CK-2) CK-MB (CK-2) Rel Index Troponin I B-Natriuretic Peptide Total Protein Albumin Globulin Albumin/Globulin Ratio Procalcitonin Urine Color Urine Appearance Urine pH Ur Specific [place] Urine Protein Urine Glucose (UA) Urine Ketones Urine Occult Blood Urine Nitrate Urine Bilirubin Urine Ictotest Urine Urobilinogen Ur Leukocyte Esterase Urine RBC Urine WBC Ur Squamous Epith Cells Calcium Oxalate Crystal Uric Acid Crystals Amorphous Sediment Urine Bacteria Hyaline Casts Ur Culture Indicated? Nasal Screen MRSA (PCR) Influenza A (RT-PCR) Flu a negative Influenza B (RT-PCR) Flu b negative Discharge Plan Discharge Plan Patient Disposition: Discharge orders & Medications Discharge Orders: Discharge (Order); Ordered 09/22/19 Ordered By: Jossie Sewell Discharge Data Primary Care Provider: ePpe Chan Discharges patient from system. Discharge Date/Time: 09/22/19 16:45 Date/Time: 09/22/19 14:50
== END 2019-09-22 16:45 | disposition expired ==
LOC: ED 03:07 → ICU 07:39
PROVIDERS: Admitting Provider Family Medicine; Emergency Provider Emergency Medicine; PCP Family Medicine; Visit Provider Family Medicine
DX: I48.91 Unspecified atrial fibrillation (principal); I21.A1 Myocardial infarction type 2; I50.23 Acute on chronic systolic (congestive) heart failure; R65.21 Severe sepsis with septic shock; A41.9 Sepsis, unspecified organism; I13.0 Hypertensive heart and chronic kidney disease with heart failure and stage 1 through stage 4 chronic kidney disease, or unspecified chronic kidney disease; M62.82 Rhabdomyolysis; N17.9 Acute kidney failure, unspecified; T68.XXXA Hypothermia, initial encounter; I27.20 Pulmonary hypertension, unspecified; N18.3 Chronic kidney disease, stage 3 (moderate); E11.22 Type 2 diabetes mellitus with diabetic chronic kidney disease; Z79.84 Long term (current) use of oral hypoglycemic drugs; W18.30XA Fall on same level, unspecified, initial encounter; E78.5 Hyperlipidemia, unspecified; Z79.01 Long term (current) use of anticoagulants; I07.1 Rheumatic tricuspid insufficiency; R74.0 Nonspecific elevation of levels of transaminase and lactic acid dehydrogenase [LDH]
CPT/HCPCS: 36415; 36569; 70450; 71045; 72170; 80053; 81001; 82550; 82553; 82962; 83605; 83735; 83880; 84100; 84145; 84484; 85025; 85610; 85730; 87040; 87502; 87797; 93005; 93306; 96365; 96367; 96375; 99283; 99291; 99292; C9113; J0282; J1160; J1940